=== PATIENT | male | born 1935 | race Caucasian/White ===

== ENCOUNTER 2017-05-21 16:40 | Inpatient (IN) | payer OTHER, MEDICARE ==
[~2017-05-21] VITALS: Ht 170.2 cm; Wt 108.9 kg
[~2017-05-21 16:40] MED LIST: ALBUTEROL2.5 MG/3 M INH; AMOX-CLAV 875-1 EACH PO; ANTIVERT 12.512.5 MG PO; BISACODYL5 M1 PO; CARDIZEM60 M1 PO; COZAAR100 M1 PO; DILTIAZEM 12HR60 MG PO; DIOVAN 160 MG160 MG PO; DONEPEZIL HCL10 M1 PO; ESCITALOPRAM OX20 MG PO; LANTUS SOL100 UNIT/1 SC; LEVEMIR FLEX100 U/M1 SC; LEVEMIR100 UNIT/1 SC; LOPRESSOR 25MG25 MG PO; METFORMIN HCL500 MG PO; NOVOLIN R100 UNIT/1 SC; PREDNISONE10 M2 PO; SENNA PLUS TAB1 EACH PO; SIMVASTATIN40 M1 PO; TOUJEO SOL300 UNIT/1 SC; VALSARTAN-HCTZ1 EAC2 PO; ZOCOR 40MG TAB40 MG PO
--- NOTE | 2017-05-21 16:49 | ED DYSPNEA/ASTHMA COMPLAINT ---
History of Present Illness General Chief Complaint: General Adult Stated Complaint: INCREASED WEAKNESS, UNABLE TO AMBULATE Source: patient Exam Limitations: confusion, poor historian Vital Signs & Intake/Output Vital Signs & Intake/Output Vital Signs Date Time Temp Pulse Resp B/P B/P Pulse O2 O2 Flow FiO2 Mean Ox Delivery Rate 05/21 2307 98.6 84 16 144/69 95 Nasal 1.0L Cannula 05/211 100.2 80 20 144/73 96 Nasal 1.0L Cannula 05/21 1902 100.0 81 22 142/74 93 Room Air 05/21 1706 96 Room Air 05/21 1704 93 05/21 1644 99.8 83 20 158/70 97 Room Air ED Intake and Output 05/22 0000 05/21 1200 Intake Total 420 Output Total 300 Balance 120 Intake, Oral 420 Output, Urine 300 Patient 256 lb Weight Weight Estimated Measurement Method Allergies Coded Allergies: NO KNOWN ALLERGIES (08/27/12) Triage Nurses Notes Reviewed? yes Onset: Abrupt Duration: day(s):, constant, continues in ED Timing: recent history Severity: mild, moderate HPI: 82-year-old male comes into the emergency room for further evaluation of increased weakness and shortness of breath. Symptoms of a going on for the past few days. Patient has been increasingly weak. He is unable to ambulate for the past few days. Denies any fever. Denies any chest pain. No vomiting. Nothing seems to make the symptoms better. (Elmer Whittaker) Reconcile Medications Atorvastatin Calcium 20 MG TABLET 1 TAB PO DAILY cholesterol (Reported) Diltiazem HCl (Diltiazem 12HR ER) 60 MG CAP.ER.12H 1 TAB PO BID HEART RATE ( Reported) Donepezil HCl 10 MG TABLET 1 TAB PO DAILY CONFUSION (Reported) Escitalopram Oxalate 20 MG TABLET 1 TAB PO DAILY DEPRESSION (Reported) Furosemide 20 MG TABLET 1 TAB PO DAILY Swelling (Reported) Insulin Detemir (Levemir) 100 UNIT/ML VIAL 30 UNITS SC DAILY DIABETES Insulin Regular (Novolin R Inj) 1,000 UNITS/10 ML MADHAVI 0 UNITS SC SEE ADMIN CRITERIA DIABETES (Reported) BEFORE MEALS BEFORE MEALS Blood Insulin Sugar Units <80 0 81-100 0 101-150 2 151-200 4 201-250 6 251-300 8 301-350 10 351-400 12 >400 Call Doctor Losartan (Cozaar) 100 MG TABLET 1 TAB PO DAILY high blood pressure Memantine HCl (Namenda) 10 MG TABLET 1 TAB PO DAILY dementia (Reported) Trazodone HCl 50 MG TABLET 0.5 TAB PO TIDPRN PRN Anxiety/Behavioral disturbance (Reported) (Delmy ROACH,Patrick Christy) Past History Travel History Traveled to [place] past 21 day No Medical History Any Pertinent Medical History? see below for history Neurological: dizziness, vertigo EENT: NONE Cardiovascular: hypertension, hyperlipidemia, syncope Respiratory: NONE Gastrointestinal: NONE Hepatic: NONE Renal: chronic kidney disease (stage3), bladder stones Musculoskeletal: osteoarthritis Psychiatric: NONE Endocrine: diabetes Blood Disorders: NONE Cancer(s): NONE ALLIANCES CONSULTANT/Reproductive: NONE History of MRSA: No History of VRE: No History of CDIFF: No Surgical History Surgical History: cystoscopy, hernia repair-inguinal, Lithotrpsy Psychosocial History Who do you live with Spouse Services at Home None What is your primary language Thai Family History Family History, If Any: FATHER (CAD, 2/2 AMI in 60's). Hx Contributory? No (Elmer Whittaker) Review of Systems Review of Systems Constitutional: Reports: see HPI. EENTM: Reports: no symptoms. Respiratory: Reports: see HPI. Cardiovascular: Reports: no symptoms. GI: Reports: no symptoms. Genitourinary: Reports: no symptoms. Musculoskeletal: Reports: see HPI. Skin: Reports: no symptoms. Neurological/Psychological: Reports: no symptoms. Hematologic/Endocrine: Reports: no symptoms. Immunologic/Allergic: Reports: no symptoms. All Other Systems: Reviewed and Negative (Elmer Whittaker) Physical Exam Physical Exam General Appearance: well developed/nourished, alert, awake Head: atraumatic Eyes: Bilateral: normal appearance. Ears, Nose, Throat: normal ENT inspection, hearing grossly normal Neck: normal inspection Respiratory: decreased breath sounds, wheezing, respiratory distress (mild) Cardiovascular: regular rate/rhythm Gastrointestinal: soft Extremities: pedal edema Neurologic/Psych: awake, alert Skin: intact, normal color Core Measures ACS in differential dx? Yes CVA/TIA Diagnosis No Sepsis Present: No Sepsis Focused Exam Completed? No (Elmer Whittaker) Progress Differential Diagnosis: asthma, AMI, bronchitis, costochondritis, CHF, COPD, musculoskeletal pain, pericarditis, pulmonary embolism, pneumonia, pneumothorax, rib fracture, unstable angina Plan of Care: Orders Procedure Date/time Status Nothing by Mouth 05/22 B Active Lab Add-on Test 05/22 0600 Active CBC WITHOUT DIFFERENTIAL 05/22 0600 Active BASIC ELECTROLYTES PLUS BUN&CR 05/22 0600 Active TROPONIN LEVEL 05/22 0500 Active EKG 05/22 0500 Active Consistent Carbohydrate 2 05/21 D Complete D-DIMER 05/21 2325 Complete HEPATITIS PANEL 05/21 2318 Active MONOSPOT TEST 05/21 2316 Complete [place], Insertion/Removal/Asses 05/21 2305 Active CULTURE,URINE 05/21 2305 Active MAGNESIUM 05/21 2301 Complete TROPONIN LEVEL 05/21 2300 Complete EKG 05/21 2300 Active Patient Data 05/21 2205 Active THROAT CULTURE W/QUICK STREP 05/21 215 Active TRC EVALUATION (GEN) 05/21 2149 Active OXYGEN SETUP (GEN) 05/21 214 Active Pathway - chart 05/21 214 Active House Staff 05/21 2149 Active Patient Data 05/21 2149 Active Patient Data 05/21 2115 Active Saline Lock 05/[address] in observation 05/21 2013 Active Misc Message 05/21 2013 Active ED Holding Orders 05/21 2013 Active Vital Signs 05/21 2013 Active Code Status 05/21 2013 Active ACETOMINOPHEN 05/21 1658 Active TOTAL IRON BINDING CAPACITY 05/21 1658 Active GLYCOSYLATED HGB 05/21 1658 Active FERRITIN 05/21 1658 Active SERUM IRON 05/21 1658 Active Add-on Test (ER Only) 05/21 1648 Active Telemetry/Hose Maker 05/21 1648 Active RAPID VIRAL INFLUENZA A 05/21 1648 Complete BLOOD CULTURE 05/21 1648 Active URINALYSIS 05/21 1648 Complete TROPONIN LEVEL 05/21 1648 Active LACTIC ACID 05/21 1648 Active COMPREHENSIVE METABOLIC PANEL 05/21 1648 Active CBC WITHOUT DIFFERENTIAL 05/21 1648 Complete B-TYPE NATRIURETIC PEP (BNP) 05/21 1648 Active EKG 05/21 1648 Active US-COMPLETE ABDOMEN 05/21 UNK Active Lab Add-on Test 05/21 UNK Active VTE Mechanical Prophylaxis 05/21 UNK Active Vital Signs 05/21 UNK Active MISTAKE 05/21 UNK Active Intake & Output 05/21 UNK Active Hemoccult 05/21 UNK Active [place] Coma Scale 05/21 UNK Active FingerStick- Glucose 05/21 UNK Active ECHOCARDIOGRAM 05/21 UNK Active Current Medications Sig/[place] Start time Last Medication Dose Stop Time Status Admin Azithromycin 500 MG DAILY 05/22 1000 AC (Zithromax) 05/26 1059 Sodium Chloride 250 ML (Normal Saline 0.9%) Diltiazem HCl 60 MG BID 05/22 1000 AC (Cardizem SR) Insulin Detemir 10 UNITS BID 05/22 1000 AC (Levemir) Losartan Potassium 100 MG DAILY 05/22 1000 AC (Cozaar) Memantine 10 MG DAILY 05/22 1000 AC (Namenda) Insulin Aspart 0 TIDAC 05/22 0800 CAN (NovoLOG) Insulin Human Regular 0 Q6 05/22 0600 AC (NovoLIN R) Methylprednisolone 40 MG Q8 05/22 0600 AC (Solumedrol) Heparin Sodium 5,000 UNIT Q8 05/22 0015 AC 05/22 (Porcine) 0015 Trazodone HCl 25 MG TIDPRN PRN 05/21 2330 AC (Desyrel) Furosemide 40 MG DAILY 05/21 2315 AC 05/22 (Lasix) 0015 Laboratory Tests 05/22/17 0042: Infectious [place] Titer NEGATIVE 05/22/17 0042: D-Dimer High Sensitivty 288 H, Hepatitis A IgM Ab Pending, Hep Bs Antigen Pending, Hep B Core IgM Ab Conf Pending, Hepatitis C Antibody Pending 05/21/17 2310: Urine Color YEL, Urine Clarity CLEAR, Urine pH 6.0, Ur Specific [place] 1.010, Urine Protein NEG, Urine Ketones NEG, Urine Nitrite NEG, Urine Bilirubin NEG, Urine Urobilinogen 0.2, Ur Leukocyte Esterase NEG, Ur Microscopic EXAM NOT REQUIRED, Urine Hemoglobin NEG, Urine Glucose >=1000 H 05/21/17 2301: Magnesium 1.9, Troponin I 0.06 05/21/17 194: Lactic Acid Cancelled 05/21/17 1658: Anion Gap 15, Estimated GFR 49 L, BUN/Creatinine Ratio 17.9, Glucose 158 H, Hemoglobin A1c Pending, Lactic Acid 1.6, Calcium 8.9, Iron 24 L, TIBC 291, Ferritin 188.0, Total Bilirubin 0.7, AST 205 H, ALT 188 H, Alkaline Phosphatase 214 H, Troponin I 0.04, Rdj-B-Djvtipdbllq Pept 918 H, Total Protein 6.6, Albumin 3.6, Globulin 3.0, Albumin/Globulin Ratio 1.2, CBC w Diff NO MAN DIFF REQ, RBC 4.45 L, MCV 85.8, MCH 28.7, RDW 14.8 H, MPV 7.4, Gran % 79.9 H, Lymphocytes % 7.3 L, Monocytes % 11.2 H, Eosinophils % 1.6, Basophils % 0, Absolute Granulocytes 7.0 H, Absolute Lymphocytes 0.6 L, Absolute Monocytes 1.0 H, Absolute Eosinophils 0.1, Absolute Basophils 0, PUBS MCHC 33.4 , Acetaminophen < 10.0 L Microbiology 05/21 2310 URINE ROUT: Urine Culture - RECD 05/21 2151 NASOPHARYN: Influenza Virus A & B Rapid Smear - CAN Cancelled: Cancelled via OE: DUPLICATE 05/21 2010 NASOPHARYN: Influenza Virus A & B Rapid Smear - COMP 05/21 175 BLOOD: Blood Culture - RECD 05/21 1735 BLOOD: Blood Culture - RECD Diagnostic Imaging: Viewed by Me: Radiology Read, CT Scan. Discussed w/RAD: Radiology Read, CT Scan. Radiology Impression: PATIENT: AKHIL BENTLEY PRESENT AGE: 82 PATIENT ACCOUNT NO: [id number] : 35 LOCATION: [facility] ORDERING PHYSICIAN: Elmer FRAZIER SERVICE DATE: 05/21/17 EXAM TYPE: CAT - CT ABD & PELVIS W/O IV CONTRAS EXAMINATION: CT ABDOMEN AND PELVIS WITHOUT CONTRAST CLINICAL INFORMATION: Elevated LFTs. Abdominal pain. COMPARISON: Renal ultrasound 04/29/2016, CT abdomen and pelvis 05/26/2008 TECHNIQUE: Multidetector volumetric imaging was performed from the superior aspect of the liver through the pubic symphysis. Sagittal and coronal reformatted images were obtained on the technologist's workstation. FINDINGS: LUNG BASES: The lung bases are clear. There are trace layering pleural effusions present. LIVER, GALLBLADDER, AND BILIARY TREE: The liver is normal in size, shape, and attenuation. No focal hepatic lesion or biliary ductal dilatation is present. The gallbladder is unremarkable with no evidence of radiopaque gallstones, gallbladder wall thickening, or obvious pericholecystic inflammatory changes. PANCREAS: The pancreas is mildly atrophic, there is no evidence of acute pancreatic inflammation or pancreatic mass. SPLEEN: The spleen is prominent in size. ADRENAL GLANDS: Unremarkable. KIDNEYS AND URETERS: The kidneys are normal in size, shape, and attenuation. No hydronephrosis, hydroureter, or calculi seen. No perinephric stranding. BLADDER: The bladder is incompletely distended and not well assessed. GASTROINTESTINAL TRACT: There are diffuse sigmoid diverticula present. There is no evidence of acute diverticulitis. No bowel obstruction or focal bowel wall thickening is seen. ABDOMINAL WALL: No significant hernia is appreciated. LYMPH NODES: Normal. VASCULAR: There are diffuse vascular calcifications present. There is no evidence of abdominal aortic aneurysm. PELVIC VISCERA: The prostate gland is enlarged measuring 6.9 x 5.6 cm in the transverse plane. OSSEOUS STRUCTURES: There are marked degenerative changes within the lower thoracic and lumbar spine. No acute osseous abnormality is seen. IMPRESSION: Mild prominence of the spleen. Sigmoid diverticulosis. Enlarged prostate gland. DICTATED BY: Leilani Powell MD DATE/TIME DICTATED:1827 INSIDE SALES RECRUITER:ELDA DATE/TIME TRANSCRIBED:05/21/171827 CONFIDENTIAL, DO NOT COPY WITHOUT APPROPRIATE AUTHORIZATION. <Electronically signed in Other Vendor System> SIGNED BY: Leilani Powell MD 05/21/171835, PATIENT: AKHIL BENTLEY PRESENT AGE: 82 PATIENT ACCOUNT NO: [id number] : 35 LOCATION: [facility] ORDERING PHYSICIAN: Elmer FRAZIER SERVICE DATE: 05/21/17 EXAM TYPE: RAD - XRY-PORTABLE CHEST XRAY EXAMINATION: XR PORTABLE CHEST CLINICAL INFORMATION: Shortness of breath COMPARISON: 05/29/2016 TECHNIQUE: Portable frontal view of the chest was obtained. FINDINGS: Frontal view of the chest reveals a dual lead pacer to be present, tips overlie the right atrium and right ventricle. The lungs are hypoexpanded and the exam is limited by overlying soft tissue. There is no area of focal dense consolidation seen. No pleural effusion or pneumothorax is seen. The cardiac silhouette is enlarged, stable. IMPRESSION: Limited examination. No evidence of dense focal consolidation or overt pulmonary edema. DICTATED BY: Leilani Powell MD DATE/TIME DICTATED:05/21/171804 INSIDE SALES RECRUITER:ELDA DATE/TIME TRANSCRIBED:05/21/171804 CONFIDENTIAL, DO NOT COPY WITHOUT APPROPRIATE AUTHORIZATION. <Electronically signed in Other Vendor System> SIGNED BY: Leilani Powell MD 05/21/171809 Initial ED EKG: rate (175), pacemaker rhythm (Elmer Whittaker) Departure Departure Disposition: STILL A PATIENT Condition: Stable Clinical Impression Primary Impression: Bronchitis Secondary Impressions: Multifactorial gait disorder, Transaminitis Referrals: Davonte Barahona MD (PCP/Family) Departure Forms: Customer Survey General Discharge Information Admission Note Spoke With: Mariann Louie MD Documentation of Exam: Documentation of any treatments & extenuating circumstances including Concerns Regarding Discharge (functional status, medication knowledge or non-compliance, living conditions, etc.) that warrant an admission rather than observation: Patient will require supplemental oxygen. Breathing treatments. Steroids. Pulmonary consult. Physical therapy consult. Case management consult. Patient is not able to ambulate here in the emergency room. Medically not safe for discharge. IV diuresis for lower extremity edema. (Elmer Whittaker) PA/FITNESS AND WELLNESS MANAGER Co-Sign Statement Statement: ED Attending supervision documentation- [X] I saw and evaluated the patient. I have also reviewed all the pertinent lab results and diagnostic results. I agree with the findings and the plan of care as documented in the PA's/FITNESS AND WELLNESS MANAGER's documentation. 05/21/17, 7:10PM... pt breathless, wheezing, unable to ambulate, on exam, bilateral wheeze.... pt merits admission for copd exacerbation, iv steroids/nebs /abx. [] I have reviewed the ED Record and agree with the PA's/FITNESS AND WELLNESS MANAGER's documentation. [] Additions or exceptions (if any) to the PAs/FITNESS AND WELLNESS MANAGER's note and plan are summarized below: [] (Delmy ROACH,Patrick Christy) Critical Care Note Critical Care Note Critical Care Time: non-applicable (Elmer Whittaker)
[2017-05-21 17:20] LABS: ABSOLUTE BASOPHIL COUNT 0 /CUMM (0.0-0.2); ABSOLUTE EOSINOPHIL COUNT 0.1 /CUMM (0.0-0.7); ABSOLUTE LYMPH COUNT 0.6 /CUMM (1.2-3.4); BASOPHIL % 0 % (0.0-2.0); EOSINOPHIL % 1.6 % (0-5); GRANULOCYTE % 79.9 % (42.2-75.2); HEMATOCRIT 38.2 % (42-52); MEAN CORPUSCULAR HGB 28.7 PG (27.0-31.0); MEAN CORPUSCULAR HGB CONC 33.4 G/DL (33.0-37.0); MEAN CORPUSCULAR VOLUME 85.8 FL (80.0-94.0); MEAN PLATELET VOLUME 7.4 FL (7.4-10.4); PLATELET COUNT 195 /CUMM (130-400); RBC DISTRIBUTION WIDTH 14.8 % (11.5-14.5); RED BLOOD CELL CT 4.45 /CUMM (4.70-6.10); WHITE BLOOD CELL COUNT 8.8 /CUMM (4.8-10.8)
--- NOTE | 2017-05-21 18:10 | RADIOLOGY REPORT ---
EXAMINATION: XR PORTABLE CHEST CLINICAL INFORMATION: Shortness of breath COMPARISON: 05/29/2016 TECHNIQUE: Portable frontal view of the chest was obtained. FINDINGS: Frontal view of the chest reveals a dual lead pacer to be present, tips overlie the right atrium and right ventricle. The lungs are hypoexpanded and the exam is limited by overlying soft tissue. There is no area of focal dense consolidation seen. No pleural effusion or pneumothorax is seen. The cardiac silhouette is enlarged, stable. IMPRESSION: Limited examination. No evidence of dense focal consolidation or overt pulmonary edema.
--- NOTE | 2017-05-21 18:36 | CT SCAN REPORT ---
EXAMINATION: CT ABDOMEN AND PELVIS WITHOUT CONTRAST CLINICAL INFORMATION: Elevated LFTs. Abdominal pain. COMPARISON: Renal ultrasound 04/29/2016, CT abdomen and pelvis 05/26/2008 TECHNIQUE: Multidetector volumetric imaging was performed from the superior aspect of the liver through the pubic symphysis. Sagittal and coronal reformatted images were obtained on the technologist's workstation. FINDINGS: LUNG BASES: The lung bases are clear. There are trace layering pleural effusions present. LIVER, GALLBLADDER, AND BILIARY TREE: The liver is normal in size, shape, and attenuation. No focal hepatic lesion or biliary ductal dilatation is present. The gallbladder is unremarkable with no evidence of radiopaque gallstones, gallbladder wall thickening, or obvious pericholecystic inflammatory changes. PANCREAS: The pancreas is mildly atrophic, there is no evidence of acute pancreatic inflammation or pancreatic mass. SPLEEN: The spleen is prominent in size. ADRENAL GLANDS: Unremarkable. KIDNEYS AND URETERS: The kidneys are normal in size, shape, and attenuation. No hydronephrosis, hydroureter, or calculi seen. No perinephric stranding. BLADDER: The bladder is incompletely distended and not well assessed. GASTROINTESTINAL TRACT: There are diffuse sigmoid diverticula present. There is no evidence of acute diverticulitis. No bowel obstruction or focal bowel wall thickening is seen. ABDOMINAL WALL: No significant hernia is appreciated. LYMPH NODES: Normal. VASCULAR: There are diffuse vascular calcifications present. There is no evidence of abdominal aortic aneurysm. PELVIC VISCERA: The prostate gland is enlarged measuring 6.9 x 5.6 cm in the transverse plane. OSSEOUS STRUCTURES: There are marked degenerative changes within the lower thoracic and lumbar spine. No acute osseous abnormality is seen. IMPRESSION: Mild prominence of the spleen. Sigmoid diverticulosis. Enlarged prostate gland.
--- NOTE | 2017-05-21 21:16 | History & Physical ---
Jessica ROACH,Amos 05/21/172115: General Information and HPI History of Present Illness: Mr. Toribio is an 82-year-old male with past medical history of BPV, hypertension , hyperlipidemia, syncope, stage III chronic kidney disease, nephrolithiasis, osteoarthritis, diabetes mellitus, tachybradycardia syndrome status post pacemaker, anxiety, depression, and dementia who was brought in by ambulance from home with shortness of breath. The patient is alert and oriented 2 but also confused and forgetful. He does not recall events leading to his hospitalization. Presently, he is complaining of confusion, congestion, and shortness of breath. The shortness of breath is worse when lying down and exertional. He uses 2 pillows to sleep at night. He noticed that he has gained weight recently and has swollen legs. He also salt restricts. He is additionally complaining of some productive cough, runny nose, sore throat, feverish, chills, night sweats, nausea, and dysuria. He denies any chest pain, palpitations, abdominal pain, vomiting, or diarrhea. I did have a chance to speak to his , Kaya. She notes that over the past week or so he has been getting progressively weaker with cough, congestion, and increased swelling. They did go to the PCP who prescribed Bactrim for bronchitis last Monday. The PCP also told him to double the dose of his furosemide from 20 mg to 40 mg once a day. She also notes that his dementia has been getting worse and he is increasingly forgetful. Allergies/Medications Allergies: Coded Allergies: NO KNOWN ALLERGIES (08/27/12) Past History Travel History Traveled to [place] past 21 day No Medical History Neurological: dizziness, vertigo EENT: NONE Cardiovascular: hypertension, hyperlipidemia, syncope Respiratory: NONE Gastrointestinal: NONE Hepatic: NONE Renal: chronic kidney disease (stage3), bladder stones Musculoskeletal: osteoarthritis Psychiatric: NONE Endocrine: diabetes Blood Disorders: NONE Cancer(s): NONE CERTIFIED OPHTHALMIC ASSISTANT/Reproductive: NONE History of MRSA: No History of VRE: No History of CDIFF: No Surgical History Surgical History: cystoscopy, hernia repair-inguinal, Lithotrpsy Past Family/Social History Family History Relations & Conditions if any FATHER (CAD, 2/2 AMI in 60's). Psychosocial History Who Do You Live With? spouse Services at Home: None Primary Language: British Living Will? no Functional Ability ADLs Independent: dressing, eating, toileting, bathing. Ambulation: independent IADLs Independent: shopping, housework, finances, food prep, telephone, transportation , medication admin. Review of Systems Review of Systems Constitutional: Reports: see HPI. EENTM: Reports: no symptoms. Cardiovascular: Reports: see HPI. Respiratory: Reports: see HPI. GI: Reports: see HPI. Genitourinary: Reports: see HPI. Musculoskeletal: Reports: no symptoms. Skin: Reports: no symptoms. Neurological/Psychological: Reports: no symptoms. Hematologic/Endocrine: Reports: no symptoms. Immunologic/Allergic: Reports: no symptoms. All Other Systems: Reviewed and Negative Exam & Diagnostic Data Last 24 Hrs of Vital Signs/I&O Vital Signs Date Time Temp Pulse Resp B/P B/P Pulse O2 O2 Flow FiO2 Mean Ox Delivery Rate 05/211 100.2 80 20 144/73 96 Nasal 1.0L Cannula 05/21 1902 100.0 81 22 142/74 93 Room Air 05/21 1706 96 Room Air 05/21 1704 93 05/21 1644 99.8 83 20 158/70 97 Room Air Physical Exam General Appearance Alert, Cooperative, No Acute Distress, orientedx2 Skin Lesion on right suborbital face HEENT Atraumatic, PERRLA, EOMI, posterior pharynx erythematous Lymphatic Cervical nl Cardiovascular Normal S1, Normal S2, S3, JVD present Lungs crackles at bases Abdomen Soft, No Tenderness, obese Neurological Normal Speech, Cranial Nerves 3-12 NL Extremities 3+ pitting edema bilaterally without venous stasis dermatitis Last 24 Hrs of Labs/Regan: Laboratory Tests 05/21/17 194: Lactic Acid Cancelled 05/21/17 1658: Anion Gap 15, Estimated GFR 49 L, BUN/Creatinine Ratio 17.9, Glucose 158 H, Lactic Acid 1.6, Calcium 8.9, Total Bilirubin 0.7, AST 205 H, ALT 188 H, Alkaline Phosphatase 214 H, Troponin I 0.04, Tmb-A-Ccokqbawnyi Pept 918 H, Total Protein 6.6, Albumin 3.6, Globulin 3.0, Albumin/Globulin Ratio 1.2, CBC w Diff NO MAN DIFF REQ, RBC 4.45 L, MCV 85.8, MCH 28.7, RDW 14.8 H, MPV 7.4, Gran % 79.9 H, Lymphocytes % 7.3 L, Monocytes % 11.2 H, Eosinophils % 1.6, Basophils % 0, Absolute Granulocytes 7.0 H, Absolute Lymphocytes 0.6 L, Absolute Monocytes 1.0 H, Absolute Eosinophils 0.1, Absolute Basophils 0, PUBS MCHC 33.4 Microbiology 05/21 215 NASOPHARYN: Influenza Virus A & B Rapid Smear - ORD 05/21 2010 NASOPHARYN: Influenza Virus A & B Rapid Smear - COMP 05/21 175 BLOOD: Blood Culture - RECD 05/21 1735 BLOOD: Blood Culture - RECD Assessment/Plan Assessment: Mr. Toribio is an 82-year-old male with past medical history of BPV, hypertension , hyperlipidemia, syncope, stage III chronic kidney disease, nephrolithiasis, osteoarthritis, diabetes mellitus, tachybradycardia syndrome status post pacemaker, anxiety, depression, and dementia who was brought in by ambulance from home with shortness of breath. On presentation, vital signs were T 99.8, HR 83, RR 20, BP 158/70, saturating 97 % on room air. Laboratories were significant for white blood cell count 8.8, 79.9% granulocytes, 11.2% monocytes, hemoglobin 12.8, MCV 85.8, chloride 96, BUN 25, creatinine 1.4 (baseline 1.5), lactic acid 1.6, calcium 8.9, total bilirubin 0.7, AST 205, ALT 188, alkaline phosphatase 214, troponin 0.04, BNP 918. Chest x -ray showed no consolidation or pulmonary edema. CT abdomen/pelvis shows splenomegaly, diverticulosis, BPH. He was treated with methylprednisone, ipratropium, albuterol in the emergency room. He'll be placed in observation on telemetry and treated for the following problems: 1. Dyspnea 2. Transaminitis 3. Normocytic anemia #Dyspnea: The patient was admitted past year and had a cardiology workup that did not reveal any heart failure. However, he is presenting with symptoms of heart failure as well as an examination that shows crackles, JVD, and leg swelling. His BNP is also elevated. Because of this, it seems like he may have developed heart failure and this may be an exacerbation. He also has URI symptoms and smoking history, so a URI/COPD exacerbation is possible. -Telemetry monitoring -Cardiology consult -TTE -Furosemide IV 40 mg daily -Methylprednisone -Azithromycin #Transaminitis: This is new compared to his last admission. Although many of his symptoms can probably be explained by a CHF exacerbation, he also has splenomegaly, increased monocytes, and some URI symptoms. Potentially, he may have EBV infection. He has a low grade fever, and he is reporting chills and night sweats. Other items on differential include medications (statin, Bactrim) or hepatitis. -Monospot test -Hepatitis serology -Abd US in AM -Hold statin -TSH -CTM #Normocytic anemia: Asymptomatic. -Iron studies #Chronic medical problem: Hyperlipidemia, hypertension, dementia, depression -Continue home diltiazem, donepezil, citalopram, losartan, memantine, trazodone -Detemir plus insulin sliding scale -PT consult DVT prophylaxis with heparin Consistent carbohydrate 2 diet Full code As Ranked By This Provider Problem List: 1. Dyspnea Core Measures/Misc (02/19) Acute Coronary Syndrome ACS Diagnosis: No Congestive Heart Failure Congestive Heart Failure Diagnosis No Cerebrovascular Accident CVA/TIA Diagnosis: No VTE (View Protocol) VTE Risk Factors Age>40 No Mechanical VTE Prophylaxis d/t N/A MechProphylax Ordered No VTE Pharm Prophylaxis d/t NA PharmProphylax ordered Sepsis (View protocol) Sepsis Present: No Diana Day 05/21/173: General Information and HPI Allergies/Medications Home Med list Atorvastatin Calcium 20 MG TABLET 1 TAB PO DAILY cholesterol (Reported) Diltiazem HCl (Diltiazem 12HR ER) 60 MG CAP.ER.12H 1 TAB PO BID HEART RATE ( Reported) Donepezil HCl 10 MG TABLET 1 TAB PO DAILY CONFUSION (Reported) Escitalopram Oxalate 20 MG TABLET 1 TAB PO DAILY DEPRESSION (Reported) Furosemide 20 MG TABLET 1 TAB PO DAILY Swelling (Reported) Insulin Detemir (Levemir) 100 UNIT/ML VIAL 30 UNITS SC DAILY DIABETES Insulin Regular (Novolin R Inj) 1,000 UNITS/10 ML MADHAVI 0 UNITS SC SEE ADMIN CRITERIA DIABETES (Reported) BEFORE MEALS BEFORE MEALS Blood Insulin Sugar Units <80 0 81-100 0 101-150 2 151-200 4 201-250 6 251-300 8 301-350 10 351-400 12 >400 Call Doctor Losartan (Cozaar) 100 MG TABLET 1 TAB PO DAILY high blood pressure Memantine HCl (Namenda) 10 MG TABLET 1 TAB PO DAILY dementia (Reported) Trazodone HCl 50 MG TABLET 0.5 TAB PO TIDPRN PRN Anxiety/Behavioral disturbance (Reported) Resident Review Statement Resident Statement: examined this patient, discussed with product management internship, agreed with product management internship, reviewed EMR data (avail), reviewed images Other Findings: This is an 82-year-old gentleman with past medical history significant for retention, dyslipidemia, tachycardia bradycardia syndrome status post dual- chamber pacemaker, diabetes, CK D, Reported history of HFpEF, history of prior syncope who was BIBA for worsening of dyspnea. The patient reports exertional dyspnea which is worsened when lying down. He uses 2 pillows for sleep at baseline. He is also noticed increased leg swelling and weight gain recently. He also complains of congestion, she was fitted subjective fever and night sweats with productive cough and occasional dysuria. He denies chest pain, headache, nausea, vomiting, palpitation, abdominal pain, diarrhea. Please see above for more details. Physical exam: Maximum temperature of 100.2, pulse rate 80, respiratory rate 20, blood pressure 144/73, oxygen saturation 96% on 1 L nasal cannula oxygen. NAD, AAO 2 (person and place) HEENT: H NCAT, PERRLA, EOMI, erythematous pharynx neck : JVD noted, no carotid bruit CV: S1, S2 auscultated, S3 present, no murmur lungs: Mild crackles abdomen: Soft, NT, ND extremities: Bilateral lower extremity edema, without any venous stasis skin changes neurology: Normal speech, cranial nerves III-12 intact, normal strength, normal reflexes skin: Scar/lesion noted above right nasolabial fold(s/p cancerous lesion excision) Available labs and diagnostic data reviewed. Problem list #Worsening of dyspnea #Transaminitis #Worsening of Lower extremity edema, weight gain #Dysuria Plan day while in the hospital open (is on 30 units daily at home) repeat EKG had QTC of 423) Liban ROACH, [facility] 05/22/17 0720: Attending MD Review Statement Attending Statement Attending MD Statement: examined this patient, discuss w/resident/PA/AEROSPACE QUALITY ENGINEER, agreed w/resident/PA/AEROSPACE QUALITY ENGINEER, reviewed images, amended to note Attending Assessment/Plan: 82 yo obese M with h/o HTN, T2DM, HLD, CKD stage 3, SVT s/p PPM, dementia, tachybrady syndrome underwent PPM, no prior h/o CHF, is brought in by family for increasing weakness and exertional dyspnea. He has had increasing lower extremity edema limiting his ambulation. He reports orthopnea and productive cough with congestion. He is an active smoker, never diagnosed with COPD/ asthma. Patient is a limited history as he is forgetful. reports that patient was prescribed Bactrim for bronchitis 1 week ago and his PCP increased his lasix dose from 20 to 40 mg for worsening LE edema. Vitals: Tmax 100.2, otherwise stable. Exam: mild JVD, Chest basilar crackles+, Heart S1S2 regular, Abd soft, NT, LE: 3+ pitting edema. Labs: no leukocytosis, D -dimer 288, BUN 25, creat 1.4, glucose 158, AST 205, ALT 188, Alk phos 214, trop neg, proBNP 918, UA neg. CXR: neg. CT abd/pelvis: mild prominence of spleen, enlarged prostate gland. EKG: paced rhythm. Echo (2016): EF 60-65%, mild aortic sclerosis. Assessment and plan: 1. Exertional dyspnea, orthopnea 2. Possible congestive heart failure, no prior history of CHF. He takes lasix for LE edema. 3. Bronchitis 4. Transaminitis possibly Bactrim induced 5. CKD stage 3 - 23 hour observation on Telemetry - Monitor for arrhythmias - Strict I/O's, daily weights - IV lasix 40 daily - Obtain echo and cardio consult - Serial EKG and troponin - TRC nebs, sputum culture - IV steroids with azithromycin for bronchitis - Obtain RUQ ultrasound, hep panel. - Hold statin, trend LFTs - Diabetes management - PT eval DVT ppx Hep SC. Full code. Observation Initial Note - I have personally examined AKHIL TORIBIO on 05/22/17 at 0721. The disposition of AKHIL TORIBIO is uncertain at this time and before a determination can be made, he requires a period of observation for the following reasons [dyspnea, weakness]
[2017-05-21] MEDS ORDERED: ATORVASTATIN CA20 M1 PO (22:21)
[2017-05-21] MEDS ORDERED: NAMENDA10 M2 PO (22:22)
[2017-05-21] MEDS ORDERED: TRAZODONE HCL50 M1 PO (22:23)
[2017-05-21] MEDS ORDERED: FUROSEMIDE20 M1 PO (22:24)
[2017-05-21 23:00] VITALS: BP 147/67
[2017-05-22 06:37] LABS: ABSOLUTE BASOPHIL COUNT 0 /CUMM (0.0-0.2); ABSOLUTE EOSINOPHIL COUNT 0 /CUMM (0.0-0.7); ABSOLUTE GRANULOCYTE CT 6.7 /CUMM (1.4-6.5); ABSOLUTE LYMPH COUNT 0.6 /CUMM (1.2-3.4); ABSOLUTE MONOCYTE COUNT 0.2 /CUMM (0.10-0.60); BASOPHIL % 0 % (0.0-2.0); EOSINOPHIL % 0 % (0-5); GRANULOCYTE % 89.3 % (42.2-75.2); HEMATOCRIT 35.8 % (42-52); MEAN CORPUSCULAR HGB 28.5 PG (27.0-31.0); MEAN CORPUSCULAR HGB CONC 33.2 G/DL (33.0-37.0); MEAN PLATELET VOLUME 7.6 FL (7.4-10.4); PLATELET COUNT 131 /CUMM (130-400); RBC DISTRIBUTION WIDTH 14.6 % (11.5-14.5); RED BLOOD CELL CT 4.16 /CUMM (4.70-6.10); WHITE BLOOD CELL COUNT 7.5 /CUMM (4.8-10.8)
[2017-05-22 07:44] VITALS: BP 157/75
--- NOTE | 2017-05-22 08:04 | PN- Housestaff ---
Carolina Marino 05/22/17 0804: Subjective Follow-up For: - SOB Subjective: Pt comfortable. No new complaints. Remained afebrile overnight. Review of Systems Constitutional: Reports: see HPI. Objective Last 24 Hrs of Vital Signs/I&O Vital Signs Date Time Temp Pulse Resp B/P B/P Pulse O2 O2 Flow FiO2 Mean Ox Delivery Rate 05/22 0744 95.5 90 20 157/75 96 Nasal 2.0L Cannula 05/22 0615 95.5 90 20 157/75 Nasal 2.0L Cannula 05/21 2307 98.6 84 16 144/69 95 Nasal 1.0L Cannula 05/21 2300 96.5 80 18 147/67 96 Nasal 2.0L Cannula 05/21 2121 100.2 80 20 144/73 96 Nasal 1.0L Cannula 05/21 1902 100.0 81 22 142/74 93 Room Air 05/21 1706 96 Room Air 05/21 1704 93 05/21 1644 99.8 83 20 158/70 97 Room Air Intake & Output 05/22 1600 05/22 0800 05/22 0000 Intake Total 420 Output Total 700 300 Balance -700 120 Intake, Oral 420 Output, Urine 700 300 Patient 256 lb Weight Weight Estimated Measurement Method Physical Exam General Appearance: No Acute Distress Current Medications: Current Medications Sig/Lolis Start time Last Medication Dose Route Stop Time Status Admin Albuterol Sulfate 3 ML ONCE ONE 05/21 1700 DC 05/21 INH 05/21 1701 1704 Azithromycin 500 MG DAILY 05/22 1000 AC Sodium Chloride 250 ML IV 05/26 1059 Diltiazem HCl 60 MG BID 05/22 1000 AC PO Furosemide 0 .STK-MED ONE 05/22 0003 DC IV Furosemide 40 MG DAILY 05/21 2315 AC 05/22 IV 0015 Heparin Sodium 0 .STK-MED ONE 05/22 0614 DC (Porcine) .ROUTE Heparin Sodium 0 .STK-MED ONE 05/22 0028 DC (Porcine) .ROUTE Heparin Sodium 5,000 UNIT Q8 05/22 0015 AC 05/22 (Porcine) SC 0650 Insulin Aspart 0 TIDAC 05/22 0800 CAN SC Insulin Detemir 10 UNITS BID 05/22 1000 AC SC Insulin Human Regular 0 Q6 05/22 0600 AC 05/22 SC 0650 Ipratropium [place] 2.5 ML ONCE ONE 05/21 1700 DC 05/21 INH 05/21 170 1703 Losartan Potassium 100 MG DAILY 05/22 1000 AC PO Memantine 10 MG DAILY 05/22 1000 AC PO Memantine 20 MG BID 05/21 2328 DC PO Methylprednisolone 40 MG Q8 05/22 0600 AC 05/22 IV 0650 Methylprednisolone 0 .STK-MED ONE 05/21 1720 DC .ROUTE Methylprednisolone 125 MG ONCE ONE 05/21 1700 DC 05/21 IV 05/21 170 1721 Trazodone HCl 25 MG TIDPRN PRN 05/21 2330 AC PO Last 24 Hrs of Lab/Regan Results Last 24 Hrs of Labs/Mics: Laboratory Tests 05/22/17 0600: Troponin I 0.04 05/22/17 0600: Anion Gap 11, Estimated GFR 53 L, BUN/Creatinine Ratio 19.2, CBC w Diff MAN DIFF ORDERED, RBC 4.16 L, MCV 86.0, MCH 28.5, RDW 14.6 H, MPV 7.6, Gran % 89.3 H, Lymphocytes % 8.7 L, Monocytes % 2.0, Eosinophils % 0, Basophils % 0, Absolute Granulocytes 6.7 H, Segmented Neutrophils 80 H, Band Neutrophils 3, Absolute Lymphocytes 0.6 L, Lymphocytes 16 L, Monocytes 1 L, Absolute Monocytes 0.2, Absolute Eosinophils 0, Absolute Basophils 0, Platelet Estimate DECREASED, Normocytic RBCs VERIFIED, Normochromic RBCs VERIFIED, PUBS MCHC 33.2 05/22/17 0042: Infectious Douglas Titer NEGATIVE 05/22/17 0042: D-Dimer High Sensitivty 288 H, Hepatitis A IgM Ab Pending, Hep Bs Antigen Pending, Hep B Core IgM Ab Conf Pending, Hepatitis C Antibody Pending 05/21/17 2310: Urine Color YEL, Urine Clarity CLEAR, Urine pH 6.0, Ur Specific Alexander 1.010, Urine Protein NEG, Urine Ketones NEG, Urine Nitrite NEG, Urine Bilirubin NEG, Urine Urobilinogen 0.2, Ur Leukocyte Esterase NEG, Ur Microscopic EXAM NOT REQUIRED, Urine Hemoglobin NEG, Urine Glucose >=1000 H 05/21/17 2301: Magnesium 1.9, Troponin I 0.06 05/21/171947: Lactic Acid Cancelled 05/21/17 1658: Anion Gap 15, Estimated GFR 49 L, BUN/Creatinine Ratio 17.9, Glucose 158 H, Hemoglobin A1c Pending, Lactic Acid 1.6, Calcium 8.9, Iron 24 L, TIBC 291, Ferritin 188.0, Total Bilirubin 0.7, AST 205 H, ALT 188 H, Alkaline Phosphatase 214 H, Troponin I 0.04, Bhn-O-Zgvtchipxxl Pept 918 H, Total Protein 6.6, Albumin 3.6, Globulin 3.0, Albumin/Globulin Ratio 1.2, CBC w Diff NO MAN DIFF REQ, RBC 4.45 L, MCV 85.8, MCH 28.7, RDW 14.8 H, MPV 7.4, Gran % 79.9 H, Lymphocytes % 7.3 L, Monocytes % 11.2 H, Eosinophils % 1.6, Basophils % 0, Absolute Granulocytes 7.0 H, Absolute Lymphocytes 0.6 L, Absolute Monocytes 1.0 H, Absolute Eosinophils 0.1, Absolute Basophils 0, PUBS MCHC 33.4 , Acetaminophen < 10.0 L Microbiology 05/21 2310 URINE ROUT: Urine Culture - RECD 05/21 2151 NASOPHARYN: Influenza Virus A & B Rapid Smear - CAN Cancelled: Cancelled via OE: DUPLICATE 05/21 2010 NASOPHARYN: Influenza Virus A & B Rapid Smear - COMP 05/21 175 BLOOD: Blood Culture - RECD 05/21 1735 BLOOD: Blood Culture - RECD Assessment/Plan Assessment: Mr. Toribio is an 82 yr old gentleman w/ dementia, PMHx of BPV, HTN, HLD, syncope, CKD stage 3a, insulin treated DM, tachy-alejandra syndrome s/p PPM, depression who is being evaluated for worsening dyspnea in the last few weeks likely secondary to diastolic cardiac dysfunction and bronchitis. At the time of admission, Tm 100.2, WI 80, RR 20, BP 144/73, O2 sat 96% 1L NC. General Appearance Alert, Cooperative, No Acute Distress, orientedx2 Skin Lesion on right side maxillary area. HEENT Atraumatic, PERRLA, EOMI, posterior pharynx erythematous Lymphatic Cervical nl Cardiovascular Normal S1, Normal S2, S3, No JVD. Lungs: fine crackles at bases bilaterally Abdomen Soft, No Tenderness, obese Neurological Normal Speech, Cranial Nerves 3-12 NL Extremities 3+ pitting edema bilaterally without venous stasis dermatitis Pertinent lab findings: WBC 8.8, 79.9% granulocytes, HB 12.8, Renal function- BUN 25, creatinine 1.4 (baseline 1.5), lactic acid 1.6 Liver chemistries- total bilirubin 0.7, AST 205, ALT 188, alkaline phosphatase 214, Cardiac enzymes- troponin 0.04, BNP 918. Chest x-ray showed no consolidation or pulmonary edema. CT abdomen/pelvis shows splenomegaly, diverticulosis, BPH. Etiology in his case is likely multifactorial. Last echocardiogram does not show any systolic dysfunction, but diastolic dysfunction is likely, although not read in the report. Also, acute bronchitis is possible. Pt has a remote h/o of COPD, which could be investigated further. Other casues such as pneumonia is ruled out so far. 1. Shortness of breath- Would continue to treat both fluid overload, and also pulmonary component. - Increase the dose of lasix to iv bid. - Monitor ins and outs carefully. - Decrease the dose based upon renal fn, and urine output. - Echocardiogram to evaluate the systolic fn. - Serial EKGs and trops. - Cardiology consult was called. - Continue iv solumedrol for now, but would change to iv bid in the am. - Continue azithromycin fo rnow. 2. Diabetes- Continue home dose of levemir, and start novolog. Would change the dose of novolog, after his diet is more regular. 3. Abnormal liver chemistries- would follow up US results. - COntinue to follow. - Etiology due to congestion. Housekeeping- DVT PPx- heparin sc Problem List: 1. Dyspnea 2. Transaminitis 3. Bronchitis 4. Hyperglycemia Pain Ratin Pain Location: back Pain Goal: Pain 4 or less Pain Plan: tylenol Tomorrow's Labs & Rationales: cbc bep lfts. Sonja Germain MD 05/22/17 1631: Attending MD Review Statement Attending Statement Attending MD Statement: examined this patient, discuss w/resident/PA/ASSISTANT INFANT TEACHER, agreed w/resident/PA/ASSISTANT INFANT TEACHER, reviewed EMR data (avail) Attending Assessment/Plan: 82M PMH HTN, T2DM, HLD, CKD stage 3, SVT s/p PPM, dementia, tachybrady syndrome underwent PPM, no prior h/o CHF admitted with dyspnea, weakness, and cough in the setting of CHF and COPD exacerbations, started on IV Lasix and IV Solumedrol. Patient still SOB but no other complaints, feels well. Coarse breaeth sounds on lung exam, LE edema noted. CXR negative, CT abdomen and abdominal ultrasound normal. LFTs elevated. 1. Acute CHF, undetermined type 2. COPD Exacerbation 3. Hypervolemia Plan - Continue on telemetry - Lasix 40mg IV BID - Solumedrol 40mg q8h, will taper tomorrow - May continue Azithro for now - Sputum culture - Continue home medications - Echocardiogram - Pulmonary and cardiology consults - DVT PPx
[2017-05-22 10:58] VITALS: BP 177/84
--- NOTE | 2017-05-22 10:59 | ULTRASOUND REPORT ---
EXAMINATION: US ABDOMEN COMPLETE CLINICAL INFORMATION: Transaminitis. Rule out any pathology. COMPARISON: CT scan of the abdomen and pelvis dated 05/21/2017 TECHNIQUE: Real-time imaging of the abdominal viscera. FINDINGS: PANCREAS: The pancreatic body is visualized and appears unremarkable. Remainder of the pancreas is obscured by overlying bowel gas. ABDOMINAL AORTA: The proximal segment is normal in caliber. INFERIOR VENA CAVA: Visualized portions are normal. LIVER: Poorly visualized. The liver demonstrates normal size and contour. There is increased in hepatic echogenicity seen, likely artifactual due to technically suboptimal images. No focal lesion or intrahepatic biliary duct dilatation. GALLBLADDER: Normal. The gallbladder is physiologically distended without evidence of stones, sludge, polyps, wall thickening or pericholecystic fluid. COMMON BILE DUCT: Normal in caliber measuring 0.3 cm in diameter. RIGHT KIDNEY: Mild renal cortical thinning is seen. No hydronephrosis. No renal calculi or focal parenchymal lesions. The kidney measures 10.5 cm in maximum dimension. LEFT KIDNEY: Mild renal cortical thinning is seen. No hydronephrosis. No renal calculi or focal parenchymal lesions. The kidney measures 10.5 cm in maximum dimension. SPLEEN: Enlarged. The spleen measures 14.9 cm in maximum dimension. FREE FLUID: None. IMPRESSION: 1. Pancreatic body unremarkable. Remainder of pancreas obscured by overlying bowel gas. 2. Liver poorly visualized. 3. Enlarged spleen. 4. Otherwise unremarkable exam.
--- NOTE | 2017-05-22 11:19 | Cons- Cardiology ---
General Information and HPI Consulting Request Date of Consult: 05/22/17 Requested By: Sonja Germain MD Reason for Consult: CHF History of Present Illness: The patient is an 82-year-old male with history of hypertension, hyperlipidemia, diabetes mellitus, and permanent pacemaker who was brought to the hospital by ambulance for shortness of breath. The shortness of breath has been worsening over the past few days. He has been using 2 pillows to sleep at night. He notes recent weight gain. No chest pain. No palpitations. No diaphoresis. He notes recent cough and congestion. He also notes recent lower extremity swelling. He was recently prescribed Bactrim for bronchitis. He was also told to double his furosemide dose to 40 mg per day. No syncope. No diaphoresis. No nausea or vomiting. No hemoptysis. Allergies/Medications Allergies: Coded Allergies: NO KNOWN ALLERGIES (08/27/12) Home Med List: Atorvastatin Calcium 20 MG TABLET 1 TAB PO DAILY cholesterol (Reported) Diltiazem HCl (Diltiazem 12HR ER) 60 MG CAP.ER.12H 1 TAB PO BID HEART RATE ( Reported) Donepezil HCl 10 MG TABLET 1 TAB PO DAILY CONFUSION (Reported) Escitalopram Oxalate 20 MG TABLET 1 TAB PO DAILY DEPRESSION (Reported) Furosemide 20 MG TABLET 1 TAB PO DAILY Swelling (Reported) Insulin Detemir (Levemir) 100 UNIT/ML VIAL 30 UNITS SC DAILY DIABETES Insulin Regular (Novolin R Inj) 1,000 UNITS/10 ML MADHAVI 0 UNITS SC SEE ADMIN CRITERIA DIABETES (Reported) BEFORE MEALS BEFORE MEALS Blood Insulin Sugar Units <80 0 81-100 0 101-150 2 151-200 4 201-250 6 251-300 8 301-350 10 351-400 12 >400 Call Doctor Losartan (Cozaar) 100 MG TABLET 1 TAB PO DAILY high blood pressure Memantine HCl (Namenda) 10 MG TABLET 1 TAB PO DAILY dementia (Reported) Trazodone HCl 50 MG TABLET 0.5 TAB PO TIDPRN PRN Anxiety/Behavioral disturbance (Reported) Current Medications: Current Medications Sig/Lolis Start time Last Medication Dose Route Stop Time Status Admin Azithromycin 500 MG DAILY 05/22 1000 AC 05/22 Sodium Chloride 250 ML IV 05/26 1059 1014 Diltiazem HCl 60 MG BID 05/22 1000 AC 05/22 PO 1014 Furosemide 40 MG 7:30 AM, & 4:30 PM 05/22 1630 AC 05/22 IV 1708 Furosemide 0 .STK-MED ONE 05/22 1006 DC IV Furosemide 0 .STK-MED ONE 05/22 0003 DC IV Furosemide 40 MG DAILY 05/21 2315 DC 05/22 IV 1014 Heparin Sodium 0 .STK-MED ONE 05/22 1444 DC (Porcine) .ROUTE Heparin Sodium 0 .STK-MED ONE 05/22 0614 DC (Porcine) .ROUTE Heparin Sodium 0 .STK-MED ONE 05/22 0028 DC (Porcine) .ROUTE Heparin Sodium 5,000 UNIT Q8 05/22 0015 AC 05/22 (Porcine) SC 1445 Insulin Aspart 0 TIDAC 05/22 1700 AC 05/22 SC 1708 Insulin Aspart 0 TIDAC 05/22 0800 CAN SC Insulin Detemir 10 UNITS BID 05/22 1000 AC 05/22 SC 1058 Insulin Human Regular 0 Q6 05/22 0600 DC 05/22 SC 1237 Losartan Potassium 100 MG DAILY 05/22 1000 AC 05/22 PO 1014 Memantine 10 MG DAILY 05/22 1000 AC 05/22 PO 1014 Memantine 20 MG BID 05/21 2328 DC PO Methylprednisolone 40 MG Q12 05/23 1000 UNVr IV Methylprednisolone 0 .STK-MED ONE 05/22 1446 DC .ROUTE Methylprednisolone 40 MG Q8 05/22 0600 r 05/22 IV 05/22 2300 1445 Trazodone HCl 25 MG TIDPRN PRN 05/21 2330 AC PO Review of Systems Review of Systems: No Rash. No tremor. No melena. No diaphoresis. All other systems were reviewed, and were noted to be negative. Past History Travel History Traveled to [place] past 21 day No Medical History Neurological: dizziness, vertigo EENT: NONE Cardiovascular: hypertension, hyperlipidemia, syncope Respiratory: NONE Gastrointestinal: NONE Hepatic: NONE Renal: chronic kidney disease (stage3), bladder stones Musculoskeletal: osteoarthritis Psychiatric: NONE Endocrine: diabetes Blood Disorders: NONE Cancer(s): NONE SHUTTLE FIXER/Reproductive: NONE Surgical History Surgical History: cystoscopy, hernia repair-inguinal, Lithotrpsy Family History Relations & Conditions If Any: FATHER (CAD, 2/2 AMI in 60's). Psychosocial History Who Do You Live With? spouse Services at Home: None Primary Language: German Smoking Status: Former Smoker Living Will? no Functional Ability ADLs Independent: dressing, eating, toileting, bathing. Ambulation: independent IADLs Independent: shopping, housework, finances, food prep, telephone, transportation , medication admin. Exam & Diagnostic Data Vital Signs and I&O Vital Signs Date Time Temp Pulse Resp B/P B/P Pulse O2 O2 Flow FiO2 Mean Ox Delivery Rate 05/22 1600 Nasal 2.0L Cannula 05/22 1600 97.9 86 20 142/70 95 Nasal 2.0L Cannula 05/22 1214 95.5 80 16 121/58 95 Nasal 2.0L Cannula 05/22 1213 97.5 80 16 121/58 95 Nasal 2.0L Cannula 05/22 1058 82 20 177/84 96 Nasal 1.5L Cannula 05/22 1014 97.9 92 20 174/90 05/22 1014 97.9 92 20 174/90 05/22 1013 Nasal 2.0L Cannula 05/22 1012 Nasal 1.5L Cannula 05/22 0744 95.5 90 20 157/75 96 Nasal 2.0L Cannula 05/22 0615 95.5 90 20 157/75 Nasal 2.0L Cannula 05/22 0000 95 Nasal 2.0L Cannula 05/21 2307 98.6 84 16 144/69 95 Nasal 1.0L Cannula 05/21 2300 96.5 80 18 147/67 96 Nasal 2.0L Cannula 05/21 2121 100.2 80 20 144/73 96 Nasal 1.0L Cannula Intake & Output 05/22 1600 05/22 0800 05/22 0000 05/21 1600 05/21 0800 05/21 0000 Intake Total 480 200 420 Output Total 1700 2600 300 Balance -1220 -2400 120 Intake, IV 200 Intake, Oral 480 420 Output, Urine 1700 2600 300 Patient 240 lb Weight Weight Estimated Measurement Method Physical Exam: Gen: The patient is in no acute distress HEENT: Normal nose, ears, and oropharynx. Pupils equal bilaterally. Conjunctiva normal. Neck: Supple with no JVD, no masses, and no thyromegaly Lungs: Bilateral rales with normal respiratory effort Heart: RRR, S1, S2, no murmurs. No peripheral edema, 2+ pulses in the lower extremities bilaterally Abdomen: Soft, nontender, no masses. No hepatomegaly. No splenomegaly Extremities: No clubbing or cyanosis. Normal muscle strength in the upper and lower extremities Skin: Normal skin turgor with no skin ulcers or lesions noted. Neuro: Cranial nerves intact. Sensation intact Psych: Alert and oriented 3 with appropriate affect Labs/Regan Results: Laboratory Tests 05/22 05/22 05/22 0600 0600 0042 Chemistry Sodium (137 - 145 mmol/L) 137 Potassium (3.5 - 5.1 mmol/L) 4.8 Chloride (98 - 107 mmol/L) 99 Carbon Dioxide (22 - 30 mmol/L) 27 Anion Gap (5 - 16) 11 BUN (9 - 20 mg/dL) 25 H Creatinine (0.7 - 1.2 mg/dL) 1.3 H Estimated GFR (>60 ml/min) 53 L BUN/Creatinine Ratio (7 - 25 %) 19.2 Troponin I (<0.11 ng/ml) 0.04 Hematology CBC w Diff MAN DIFF ORDERED WBC (4.8 - 10.8 /CUMM) 7.5 RBC (4.70 - 6.10 /CUMM) 4.16 L Hgb (14.0 - 18.0 G/DL) 11.9 L Hct (42 - 52 %) 35.8 L MCV (80.0 - 94.0 FL) 86.0 MCH (27.0 - 31.0 PG) 28.5 RDW (11.5 - 14.5 %) 14.6 H Plt Count (130 - 400 /CUMM) 131 MPV (7.4 - 10.4 FL) 7.6 Gran % (42.2 - 75.2 %) 89.3 H Lymphocytes % (20.5 - 51.1 %) 8.7 L Monocytes % (1.7 - 9.3 %) 2.0 Eosinophils % (0 - 5 %) 0 Basophils % (0.0 - 2.0 %) 0 Absolute Granulocytes (1.4 - 6.5 /CUMM) 6.7 H Segmented Neutrophils (42.2 - 75.2 %) 80 H Band Neutrophils (0.0 - 5.0 %) 3 Absolute Lymphocytes (1.2 - 3.4 /CUMM) 0.6 L Lymphocytes (20.5 - 51.1 %) 16 L Monocytes (1.7 - 9.3 %) 1 L Absolute Monocytes (0.10 - 0.60 /CUMM) 0.2 Absolute Eosinophils (0.0 - 0.7 /CUMM) 0 Absolute Basophils (0.0 - 0.2 /CUMM) 0 Platelet Estimate (ADEQUATE) DECREASED Normocytic RBCs VERIFIED Normochromic RBCs VERIFIED PUBS MCHC (33.0 - 37.0 G/DL) 33.2 Serology Infectious [place] Titer (NEGATIVE) NEGATIVE 05/22 05/21 05/21 0042 2310 2301 Chemistry Magnesium (1.6 - 2.3 mg/dL) 1.9 Troponin I (<0.11 ng/ml) 0.06 Coagulation D-Dimer High Sensitivty (0 - 243 ng/ml) 288 H Serology Hepatitis A IgM Ab (NONREACTIVE) NONREACTIVE Hep Bs Antigen (NONREACTIVE) NONREACTIVE Hep B Core IgM Ab Conf (NONREACTIVE) NONREACTIVE Hepatitis C Antibody (NONREACTIVE) NONREACTIVE Urines Urine Color (YEL,AMB,STR) YEL Urine Clarity (CLEAR) CLEAR Urine pH (5.0 - 8.0) 6.0 Ur Specific [place] (1.001 - 1.035) 1.010 Urine Protein (NEG,<30 MG/DL) NEG Urine Ketones (NEG) NEG Urine Nitrite (NEG) NEG Urine Bilirubin (NEG) NEG Urine Urobilinogen (0.1 - 1.0 EU/dl) 0.2 Ur Leukocyte Esterase (NEG) NEG Ur Microscopic EXAM NOT REQUIRED Urine Hemoglobin (NEG) NEG Urine Glucose (N MG/DL) >=1000 H 05/218 1658 Chemistry Sodium (137 - 145 mmol/L) 139 Potassium (3.5 - 5.1 mmol/L) 4.6 Chloride (98 - 107 mmol/L) 96 L Carbon Dioxide (22 - 30 mmol/L) 28 Anion Gap (5 - 16) 15 BUN (9 - 20 mg/dL) 25 H Creatinine (0.7 - 1.2 mg/dL) 1.4 H Estimated GFR (>60 ml/min) 49 L BUN/Creatinine Ratio (7 - 25 %) 17.9 Glucose (65 - 99 mg/dL) 158 H Hemoglobin A1c (4.2 - 5.8 %) 6.8 H Lactic Acid (0.7 - 2.1 mmol/L) Cancelled 1.6 Calcium (8.4 - 10.2 mg/dL) 8.9 Iron (49 - 181 ug/dL) 24 L TIBC (261 - 462 ug/dL) 291 Ferritin (17.9 - 464 ng/mL) 188.0 Total Bilirubin (0.2 - 1.3 mg/dL) 0.7 AST (17 - 59 U/L) 205 H ALT (21 - 72 U/L) 188 H Alkaline Phosphatase (< 127 U/L) 214 H Troponin I (<0.11 ng/ml) 0.04 Luo-[id number] Pept (<125 pg/mL) 918 H Total Protein (6.3 - 8.2 g/dL) 6.6 Albumin (3.5 - 5.0 g/dL) 3.6 Globulin (1.9 - 4.2 gm/dL) 3.0 Albumin/Globulin Ratio (1.1 - 2.2 %) 1.2 Hematology CBC w Diff NO MAN DIFF REQ WBC (4.8 - 10.8 /CUMM) 8.8 RBC (4.70 - 6.10 /CUMM) 4.45 L Hgb (14.0 - 18.0 G/DL) 12.8 L Hct (42 - 52 %) 38.2 L MCV (80.0 - 94.0 FL) 85.8 MCH (27.0 - 31.0 PG) 28.7 RDW (11.5 - 14.5 %) 14.8 H Plt Count (130 - 400 /CUMM) 195 MPV (7.4 - 10.4 FL) 7.4 Gran % (42.2 - 75.2 %) 79.9 H Lymphocytes % (20.5 - 51.1 %) 7.3 L Monocytes % (1.7 - 9.3 %) 11.2 H Eosinophils % (0 - 5 %) 1.6 Basophils % (0.0 - 2.0 %) 0 Absolute Granulocytes (1.4 - 6.5 /CUMM) 7.0 H Absolute Lymphocytes (1.2 - 3.4 /CUMM) 0.6 L Absolute Monocytes (0.10 - 0.60 /CUMM) 1.0 H Absolute Eosinophils (0.0 - 0.7 /CUMM) 0.1 Absolute Basophils (0.0 - 0.2 /CUMM) 0 PUBS MCHC (33.0 - 37.0 G/DL) 33.4 Toxicology Acetaminophen (10.0 - 30.0 ug/mL) < 10.0 L Diagnostic Data EKG Results EKG tracing is independently reviewed, and reveals ventricular paced rhythm at 82 CXR Results Limited examination. No evidence of dense focal consolidation or overt pulmonary edema. Other Results CT scan of the abdomen and pelvis: Mild prominence of the spleen. Sigmoid diverticulosis. Enlarged prostate gland. Abdomen ultrasound 05/22/17: 1. Pancreatic body unremarkable. Remainder of pancreas obscured by overlying bowel gas. 2. Liver poorly visualized. 3. Enlarged spleen. 4. Otherwise unremarkable exam. Echocardiogram 04/27/16: 1. This was a technically difficult examination. 2. Minimal to mild aortic sclerosis is present with minimal to mild aortic insufficiency. 3. Mitral leaflet thickening is present with minimal to mild anular calcification and minimal to mild mitral insufficiency with mild left atrial enlargement. 4. There is no pericardial fluid detected. 5. The left ventricular chamber size is normal with mild concentric hypertrophy and a normal ejection fraction. 6. The right heart structures were not optimally assessed. Minimal to mild tricuspid and pulmonic insufficiency are present with no evidence of pulmonary hypertension. 7. MIld lipomatous hypertrophy of the interatrial septum is present. 8. The patient was bradycardic during the examination. ECG or Holter monitor correlation is suggested. Assessment/Plan Assessment/Plan Assessment: 1. Hypertension 2. Diabetes mellitus 3. Permanent pacemaker 4. History of SVT 5. Bronchitis 6. Possible acute heart failure exacerbation Plan: * Lasix 40 mg IV every 12 hours * Monitor input and output with daily weights * Continue other cardiac medications * Echocardiogram Consult Acknowledgment - Thank you for your consult request.
[2017-05-22 12:14] VITALS: BP 121/58
[2017-05-22 16:00] VITALS: BP 142/70
[2017-05-22 22:00] VITALS: BP 132/66
[2017-05-23 07:11] VITALS: BP 130/60
--- NOTE | 2017-05-23 07:35 | PN- Housestaff ---
[place]ila[place]ina 05/23/17 0734: Subjective Follow-up For: CHF Bronchitis Complaints: no complaints Tele-Events Since Last Visit: Single pacing, heart rate 70s-80s, no overnight events. Subjective: Mr. Toribio was comfortable this morning. He did not have any new complaints, no shortness of breath, chest pain, palpitations. Cough improved. Blood pressure remains stable, he was afebrile. Fluid balance -4349 ml. Review of Systems Constitutional: Reports: see HPI. Objective Last 24 Hrs of Vital Signs/I&O Vital Signs Date Time Temp Pulse Resp B/P B/P Pulse O2 O2 Flow FiO2 Mean Ox Delivery Rate 05/23 0711 98.4 75 20 130/60 91 Nasal Cannula 05/23 0000 Nasal 2.0L Cannula 05/22 2200 87 132/66 05/22 2200 98.4 81 20 95 Nasal Cannula 05/22 2126 87 132/66 05/22 1600 Nasal 2.0L Cannula 05/22 1600 97.9 86 20 142/70 95 Nasal 2.0L Cannula 05/22 1214 95.5 80 16 121/58 95 Nasal 2.0L Cannula 05/22 1213 97.5 80 16 121/58 95 Nasal 2.0L Cannula 05/22 1058 82 20 177/84 96 Nasal 1.5L Cannula 05/22 1014 97.9 92 20 174/90 05/22 1014 97.9 92 20 174/90 05/22 1013 Nasal 2.0L Cannula 05/22 1012 Nasal 1.5L Cannula 05/22 0744 95.5 90 20 157/75 96 Nasal 2.0L Cannula Intake & Output 05/23 0800 05/23 0000 05/22 1600 Intake Total 100 71 480 Output Total 641 022 0960 Balance -600 -729 -1220 Intake, IV 11 Intake, Oral 100 60 480 Number 0 0 Bowel Movements Output, Urine [phone] Physical Exam General Appearance: No Acute Distress Other Physical Findings: General Appearance Alert, Cooperative, No Acute Distress, orientedx2 Skin Lesion on right side maxillary area. HEENT Atraumatic, PERRLA, EOMI, posterior pharynx erythematous Lymphatic Cervical nl Cardiovascular Normal S1, Normal S2, S3, No JVD. Lungs: fine crackles at bases bilaterally Abdomen Soft, No Tenderness, obese Neurological Normal Speech, Cranial Nerves 3-12 NL Extremities 2+ pitting edema bilaterally without venous stasis dermatitis Current Medications: Current Medications Sig/Lolis Start time Last Medication Dose Route Stop Time Status Admin Artificial Tears 2 GTT 4 TIMES/DAY 05/22 2200 AC 05/22 OPH 2233 Azithromycin 500 MG DAILY 05/22 1000 AC 05/22 Sodium Chloride 250 ML IV 05/26 1059 1014 Diltiazem HCl 60 MG BID 05/22 1000 AC 05/22 PO 2126 Furosemide 40 MG 7:30 AM, & 4:30 PM 05/22 1630 AC 05/22 IV 1708 Furosemide 0 .STK-MED ONE 05/22 1006 DC IV Furosemide 40 MG DAILY 05/21 2315 DC 05/22 IV 1014 Heparin Sodium 0 .STK-MED ONE 05/22 1444 DC (Porcine) .ROUTE Heparin Sodium 5,000 UNIT Q8 05/22 0015 AC 05/23 (Porcine) SC 0531 Insulin Aspart 0 TIDAC 05/23 0800 UNVr SC Insulin Aspart 0 TIDAC 05/22 1700 DC 05/22 SC 1708 Insulin Detemir 10 UNITS BID 05/22 1000 AC 05/22 SC 2233 Insulin Human Regular 0 Q6 05/22 0600 DC 05/22 SC 1237 Losartan Potassium 100 MG DAILY 05/22 1000 AC 05/22 PO 1014 Memantine 10 MG DAILY 05/22 1000 AC 05/22 PO 1014 Methylprednisolone 40 MG Q12 05/23 1000 AC IV Methylprednisolone 0 .STK-MED ONE 05/22 1446 DC .ROUTE Methylprednisolone 40 MG Q8 05/22 0600 DC 05/22 IV 05/22 2300 2126 Trazodone HCl 25 MG TIDPRN PRN 05/21 2330 AC 05/22 PO 2125 Last 24 Hrs of Lab/Regan Results Last 24 Hrs of Labs/Mics: Laboratory Tests 05/23/17 0610: Sodium Pending, Potassium Pending, Chloride Pending, Carbon Dioxide Pending, Anion Gap Pending, BUN Pending, Creatinine Pending, BUN/Creatinine Ratio Pending , CBC w Diff Pending, WBC Pending, RBC Pending, Hgb Pending, Hct Pending, MCV Pending, MCH Pending, RDW Pending, Plt Count Pending, MPV Pending, PUBS MCHC Pending Microbiology 05/22 1852 LOWER RESP: Respiratory Culture - COLB 05/22 1852 LOWER RESP: Gram Stain - COLB Assessment/Plan Assessment: Mr. Toribio is an 82 yr old gentleman w/ dementia, PMHx of BPV, HTN, HLD, syncope, CKD stage 3a, insulin treated DM, tachy-alejandra syndrome s/p PPM, depression who is being evaluated for worsening dyspnea in the last few weeks likely secondary to diastolic cardiac dysfunction and bronchitis. At the time of admission, Tm 100.2, AZ 80, RR 20, BP 144/73, O2 sat 96% 1L NC. Pertinent lab findings: WBC 8.8--> 11.5 (likely due to steroids) HB 12.8--> 11.5 Renal function- BUN 25, creatinine 1.4 (05/22/2017)-->1.7 (05/23/2017). lactic acid 1.6 Liver chemistries- total bilirubin 0.7, AST 205, ALT 188, alkaline phosphatase 214, Cardiac enzymes- troponin 0.04, BNP 918. Ultrasound abdomen 05/22/17 / 0 1. Pancreatic body unremarkable. Remainder of pancreas obscured by overlying bowel gas. 2. Liver poorly visualized. 3. Enlarged spleen. 4. Otherwise unremarkable exam. Chest x-ray showed no consolidation or pulmonary edema. CT abdomen/pelvis shows splenomegaly, diverticulosis, BPH. Etiology in his case is likely multifactorial. Last echocardiogram does not show any systolic dysfunction, but diastolic dysfunction is likely, although not read in the report. Also, acute bronchitis is possible. 1. Shortness of breath- Would continue to treat both fluid overload, and also pulmonary component. -Last dose of IV Lasix this a.m. Change to by mouth Lasix in the morning. - Monitor ins and outs carefully. - Echocardiogram pending at this time. - Human Services Supervisor, Dr. Ramirez advising. - Continue iv solumedrol for now, but would change to by mouth prednisone. Would probably do 4 days of 40 mg. - Continue azithromycin fo . 2. Diabetes- increased the dose of Levemir to 12 units twice a day, and change the sliding scale to high dose, to reflect his home medication. 3. Abnormal liver chemistries- -We'll recheck LFTs in the a.m. -Ultrasound did not reveal any choledocholithiasis, cholecystitis or CBD dilatation. -Incidental finding of enlarged spleen, clinical significance unknown at this time. Housekeeping- DVT PPx- heparin sc Problem List: 1. Dyspnea 2. Transaminitis 3. Bronchitis Pain Ratin Pain Location: Back pain Pain Goal: Pain 4 or less Pain Plan: Tylenol when necessary Tomorrow's Labs & Rationales: C BC BP Sonja Germain MD 05/23/17 1354: Attending MD Review Statement Attending Statement Attending MD Statement: examined this patient, discuss w/resident/PA/PHOTOGRAMMETRIC COMPILATION SPECIALIST, agreed w/resident/PA/PHOTOGRAMMETRIC COMPILATION SPECIALIST, reviewed EMR data (avail) Attending Assessment/Plan: 82M PMH HTN, T2DM, HLD, CKD stage 3, SVT s/p PPM, dementia, tachybrady syndrome underwent PPM, no prior h/o CHF admitted with dyspnea, weakness, and cough in the setting of CHF and COPD exacerbations, started on IV Lasix and IV Solumedrol. Patient still SOB but no other complaints, feels well. Breath sounds improved. CXR negative, CT abdomen and abdominal ultrasound normal. LFTs elevated. 1. Acute CHF, undetermined type 2. COPD Exacerbation 3. Hypervolemia Plan - Continue on telemetry - Lasix 40mg IV daily - Solumedrol 40mg q12h, will convert to PO tomorrow - May continue Azithro for now - Sputum culture - Continue home medications - Echocardiogram - Pulmonary and cardiology consults - DVT PPx - Anticipated discharge tomorrow
[2017-05-23 08:34] LABS: ABSOLUTE BASOPHIL COUNT 0 /CUMM (0.0-0.2); ABSOLUTE EOSINOPHIL COUNT 0 /CUMM (0.0-0.7); ABSOLUTE GRANULOCYTE CT 10.1 /CUMM (1.4-6.5); ABSOLUTE LYMPH COUNT 0.9 /CUMM (1.2-3.4); ABSOLUTE MONOCYTE COUNT 0.4 /CUMM (0.10-0.60); BASOPHIL % 0.1 % (0.0-2.0); EOSINOPHIL % 0 % (0-5); HEMATOCRIT 34.3 % (42-52); MEAN CORPUSCULAR HGB CONC 33.7 G/DL (33.0-37.0); MEAN CORPUSCULAR VOLUME 86.3 FL (80.0-94.0); MEAN PLATELET VOLUME 7.8 FL (7.4-10.4); RBC DISTRIBUTION WIDTH 14.6 % (11.5-14.5); RED BLOOD CELL CT 3.98 /CUMM (4.70-6.10)
[2017-05-23 09:36] LABS: GRANULOCYTE % 88.4 % (42.2-75.2); PLATELET COUNT 204 /CUMM (130-400); WHITE BLOOD CELL COUNT 11.5 /CUMM (4.8-10.8)
--- NOTE | 2017-05-23 11:24 | PN- Cardiology ---
Subjective Subjective: Doing better. Shortness of breath significantly improved. No chest pain. No palpitations. Objective Vital Signs and I&Os Vital Signs Date Time Temp Pulse Resp B/P B/P Pulse O2 O2 Flow FiO2 Mean Ox Delivery Rate 05/23 0900 94 Nasal 2.0L Cannula 05/23 0821 130/70 05/23 0820 130/70 05/23 0711 98.4 75 20 130/60 91 Nasal Cannula 05/23 0000 Nasal 2.0L Cannula 05/22 2200 87 132/66 05/22 2200 98.4 81 20 95 Nasal Cannula 05/22 2126 87 132/66 05/22 1600 Nasal 2.0L Cannula 05/22 1600 97.9 86 20 142/70 95 Nasal 2.0L Cannula 05/22 1214 95.5 80 16 121/58 95 Nasal 2.0L Cannula 05/22 1213 97.5 80 16 121/58 95 Nasal 2.0L Cannula Intake & Output 05/23 1600 05/23 0800 05/23 0000 05/22 1600 05/22 0800 05/22 0000 Intake Total 100 71 480 200 420 Output Total 232 933 5541 2600 300 Balance -600 -729 -1220 -2400 120 Intake, IV 11 200 Intake, Oral 100 60 480 420 Number 0 0 Bowel Movements Output, Urine 702 257 5965 2600 300 Patient 240 lb Weight Weight Estimated Measurement Method Physical Exam: Gen: The patient is in no acute distress HEENT: Normal nose, ears, and oropharynx. Pupils equal bilaterally. Conjunctiva normal. Neck: Supple with no JVD, no masses, and no thyromegaly Lungs: Bilateral rales with normal respiratory effort Heart: RRR, S1, S2, no murmurs. No peripheral edema, 2+ pulses in the lower extremities bilaterally Abdomen: Soft, nontender, no masses. No hepatomegaly. No splenomegaly Extremities: No clubbing or cyanosis. Normal muscle strength in the upper and lower extremities Skin: Normal skin turgor with no skin ulcers or lesions noted. Neuro: Cranial nerves intact. Sensation intact Current Medications: Current Medications Sig/Lolis Start time Last Medication Dose Route Stop Time Status Admin Artificial Tears 2 GTT 4 TIMES/DAY 05/22 2200 AC 05/23 OPH 1009 Azithromycin 500 MG DAILY 05/22 1000 AC 05/23 Sodium Chloride 250 ML IV 05/26 1059 0928 Diltiazem HCl 60 MG BID 05/22 1000 AC 05/23 PO 0821 Furosemide 40 MG DAILY 05/24 1000 AC PO Furosemide 40 MG DAILY 05/23 1000 DC IV Furosemide 40 MG 7:30 AM, & 4:30 PM 05/22 1630 DC 05/23 IV 0819 Heparin Sodium 0 .STK-MED ONE 05/22 1444 DC (Porcine) .ROUTE Heparin Sodium 5,000 UNIT Q8 05/22 0015 AC 05/23 (Porcine) SC 0531 Insulin Aspart 0 TIDAC 05/23 0800 AC 05/23 SC 0820 Insulin Aspart 0 TIDAC 05/22 1700 DC 05/22 SC 1708 Insulin Detemir 12 UNITS BID 05/23 1000 AC SC Insulin Detemir 10 UNITS BID 05/22 1000 DC 05/23 SC 0820 Insulin Human Regular 0 Q6 05/22 0600 DC 05/22 SC 1237 Losartan Potassium 100 MG DAILY 05/22 1000 AC 05/23 PO 0820 Memantine 10 MG DAILY 05/22 1000 AC 05/23 PO 0820 Methylprednisolone 40 MG Q12 05/23 1000 AC 05/23 IV 05/23 2300 0819 Methylprednisolone 0 .STK-MED ONE 05/22 1446 DC .ROUTE Methylprednisolone 40 MG Q8 05/22 0600 DC 05/22 IV 05/22 2300 2126 Prednisone 40 MG DAILY 05/24 1000 AC PO Trazodone HCl 25 MG TIDPRN PRN 05/21 2330 AC 05/22 PO 2125 Results Last 48 Hrs of Labs/Mics: Laboratory Tests 05/23/17 0610: Anion Gap 10, Estimated GFR 39 L, BUN/Creatinine Ratio 23.5, CBC w Diff NO MAN DIFF REQ, RBC 3.98 L, MCV 86.3, MCH 29.0, RDW 14.6 H, MPV 7.8, Gran % 88.4 H, Lymphocytes % 7.7 L, Monocytes % 3.8, Eosinophils % 0, Basophils % 0.1, Absolute Granulocytes 10.1 H, Absolute Lymphocytes 0.9 L, Absolute Monocytes 0.4, Absolute Eosinophils 0, Absolute Basophils 0, PUBS MCHC 33.7 05/22/17 0600: Troponin I 0.04 05/22/17 0600: Anion Gap 11, Estimated GFR 53 L, BUN/Creatinine Ratio 19.2, CBC w Diff MAN DIFF ORDERED, RBC 4.16 L, MCV 86.0, MCH 28.5, RDW 14.6 H, MPV 7.6, Gran % 89.3 H, Lymphocytes % 8.7 L, Monocytes % 2.0, Eosinophils % 0, Basophils % 0, Absolute Granulocytes 6.7 H, Segmented Neutrophils 80 H, Band Neutrophils 3, Absolute Lymphocytes 0.6 L, Lymphocytes 16 L, Monocytes 1 L, Absolute Monocytes 0.2, Absolute Eosinophils 0, Absolute Basophils 0, Platelet Estimate DECREASED, Normocytic RBCs VERIFIED, Normochromic RBCs VERIFIED, PUBS MCHC 33.2 05/22/17 0042: Infectious [place] Titer NEGATIVE 05/22/17 0042: D-Dimer High Sensitivty 288 H, Hepatitis A IgM Ab NONREACTIVE, Hep Bs Antigen NONREACTIVE, Hep B Core IgM Ab Conf NONREACTIVE, Hepatitis C Antibody NONREACTIVE 05/21/17 2310: Urine Color YEL, Urine Clarity CLEAR, Urine pH 6.0, Ur Specific [place] 1.010, Urine Protein NEG, Urine Ketones NEG, Urine Nitrite NEG, Urine Bilirubin NEG, Urine Urobilinogen 0.2, Ur Leukocyte Esterase NEG, Ur Microscopic EXAM NOT REQUIRED, Urine Hemoglobin NEG, Urine Glucose >=1000 H 05/21/17 2301: Magnesium 1.9, Troponin I 0.06 05/21/17 1948: Lactic Acid Cancelled 05/21/17 1658: Anion Gap 15, Estimated GFR 49 L, BUN/Creatinine Ratio 17.9, Glucose 158 H, Hemoglobin A1c 6.8 H, Lactic Acid 1.6, Calcium 8.9, Iron 24 L, TIBC 291, Ferritin 188.0, Total Bilirubin 0.7, AST 205 H, ALT 188 H, Alkaline Phosphatase 214 H, Troponin I 0.04, Oyg-C-Nktojbmgrwm Pept 918 H, Total Protein 6.6, Albumin 3.6, Globulin 3.0, Albumin/Globulin Ratio 1.2, CBC w Diff NO MAN DIFF REQ, RBC 4.45 L, MCV 85.8, MCH 28.7, RDW 14.8 H, MPV 7.4, Gran % 79.9 H, Lymphocytes % 7.3 L, Monocytes % 11.2 H, Eosinophils % 1.6, Basophils % 0, Absolute Granulocytes 7.0 H, Absolute Lymphocytes 0.6 L, Absolute Monocytes 1.0 H, Absolute Eosinophils 0.1, Absolute Basophils 0, PUBS MCHC 33.4 , Acetaminophen < 10.0 L Microbiology 05/21 2310 URINE ROUT: Urine Culture - COMP 05/21 2010 NASOPHARYN: Influenza Virus A & B Rapid Smear - COMP Assessment/Plan Assessment/Plan Assessment: 1. Hypertension 2. Diabetes mellitus 3. Permanent pacemaker 4. History of SVT 5. Bronchitis 6. Possible acute heart failure exacerbation Plan: * Discontinue IV Lasix. The increase in BUN and creatinine suggest the patient is fully diuresed * Would resume his usual dose of oral Lasix, 20 mg daily * To other cardiac medications Continue telemetry? Yes
--- NOTE | 2017-05-23 13:47 | Discharge Summary ---
Visit Information Visit Dates Admission Date: 05/22/17 Discharge Date: 05/25/17 Hospital Course Course Attending Physician: Ludmila ROACH Primary Care Physician: Jun ROACH,[facility] Course: Mr. Toribio is an 82 yr old gentleman w/ PMHx of dementia, BPV, HTN, HLD, syncope, CKD stage 3a, insulin treated DM, tachy-alejandra syndrome s/p PPM who was evaluated for worsening dyspnea in the last few weeks likely secondary to diastolic cardiac dysfunction and bronchitis. He was recently treated w/ Bactrim for the treatment of acute bronchitis and an increased dose of furosemide for CHF, which did not alleviate his symptoms as an outpatient. At the time of admission, Tm 100.2, DC 80, RR 20, BP 144/73, O2 sat 96% 1L NC. On examination, he had fine crakles at the base of the lungs bilaterally, and 3+ pedal edema, but no raised JVP. Other pertinent lab findings: WBC 8.8, 79.9% granulocytes, HB 12.8, Renal function- BUN 25, creatinine 1.4 (baseline 1.5), lactic acid 1.6 Liver chemistries- total bilirubin 0.7, AST 205, ALT 188, alkaline phosphatase 214, Cardiac enzymes- troponin 0.04, pro BNP 918. Chest x-ray showed no consolidation or pulmonary edema. CT abdomen/pelvis shows splenomegaly, diverticulosis, BPH. ( full report below ) Etiology in his case was thought to be likely multifactorial. Last echocardiogram 04/2016 did not show any systolic dysfunction(LVEF 60%), but diastolic dysfunction was likely, although not read in the report. Also, acute bronchitis was a possible contributer. Pt has a remote h/o of COPD, which could be investigated further as an outpatient. Other causes, such as pneumonia, influenza A & B were ruled out so far. Blood cultures, urine cultures remained negative. 1. Shortness of breath- Since there was no clear cut diagnosis, that could have caused his worsening of dyspnea, he was treated w/ aggressive diuresis w/ iv furosemide and iv solumedrol for bronchitis. He showed good clinical improvement , while he was admitted to the hospital. He was requiring 2L supplemental oxygen , which was to be weaned off as his breathing allowed. He was ruled out for NV, with serial ekgs and troponin enzymes. Echocardiogram was done, and the results were pending at the time of discharge. Unfortunately, sputum cultures could not be collected. Discussed at length about limiting salt intake, and avoiding any food that causes worsening chf. Echo was done, which showed an EF of > 50-55%. NO precardial effusion. Lasix was switched to po lasxi 20 mg daily. Patient had a fluid balance of -50 on the last of hospitalization and Cr increased from 1.5 to 1.8. 2. Diabetes- Last HbA1c 6.8. He was started on slightly lower dose of levemir and novolog as compared to his home dose, as his po intake was not inadequate. The blood sugars trended up, as the po intake improved and also due to the effect of steroids. He was to be discharged on his home dose of sliding scale, and 15 U BID. 3. Abnormal liver chemistries- Etiology was thought to be due to congestion. US abdomen did not reveal any cholidocholithiasis, or cholelithiasis or any cbd dilatation. On daily trend, LFT trend leaned toward normal levels. 4. Abnormal renal function: He has a h/o ckd, likely age related or hypertension related. Although he was diabetic, and elevated BMI, he had very high glucosuria , which is likely a natural bodys homeostatic mechanism. He was aggressively diuresed in the hospital, which might have caused a slight elevation in sr creatitine( sr cr 1.7 ), which should be monitored as an outpatient. The BUN and Cr was near to base line on discharge. 5. Deconditioning: patient was ambulated by PT in RA. O2 lvl was 92% in RA. Safe to be discharged. Consultants: 1. Jordon Ramirez MD, Cardiology. Allergies: Coded Allergies: NO KNOWN ALLERGIES (08/27/12) Pertinent Lab Results: Laboratory Tests 05/23/17 0610: Anion Gap 10, Estimated GFR 39 L, BUN/Creatinine Ratio 23.5, CBC w Diff NO MAN DIFF REQ, RBC 3.98 L, MCV 86.3, MCH 29.0, RDW 14.6 H, MPV 7.8, Gran % 88.4 H, Lymphocytes % 7.7 L, Monocytes % 3.8, Eosinophils % 0, Basophils % 0.1, Absolute Granulocytes 10.1 H, Absolute Lymphocytes 0.9 L, Absolute Monocytes 0.4, Absolute Eosinophils 0, Absolute Basophils 0, PUBS MCHC 33.7 05/22/17 0600: Troponin I 0.04 05/22/17 0600 Anion Gap 11, Estimated GFR 53 L, BUN/Creatinine Ratio 19.2, CBC w Diff MAN DIFF ORDERED, RBC 4.16 L, MCV 86.0, MCH 28.5, RDW 14.6 H, MPV 7.6, Gran % 89.3 H, Lymphocytes % 8.7 L, Monocytes % 2.0, Eosinophils % 0, Basophils % 0, Absolute Granulocytes 6.7 H, Segmented Neutrophils 80 H, Band Neutrophils 3, Absolute Lymphocytes 0.6 L, Lymphocytes 16 L, Monocytes 1 L, Absolute Monocytes 0.2, Absolute Eosinophils 0, Absolute Basophils 0, Platelet Estimate DECREASED, Normocytic RBCs VERIFIED, Normochromic RBCs VERIFIED, PUBS MCHC 33.2 05/22/17 0042: Infectious [place] Titer NEGATIVE 05/22/17 0042: D-Dimer High Sensitivty 288 H, Hepatitis A IgM Ab NONREACTIVE, Hep Bs Antigen NONREACTIVE, Hep B Core IgM Ab Conf NONREACTIVE, Hepatitis C Antibody NONREACTIVE 05/21/17 2310: Urine Color YEL, Urine Clarity CLEAR, Urine pH 6.0, Ur Specific [place] 1.010, Urine Protein NEG, Urine Ketones NEG, Urine Nitrite NEG, Urine Bilirubin NEG, Urine Urobilinogen 0.2, Ur Leukocyte Esterase NEG, Ur Microscopic EXAM NOT REQUIRED, Urine Hemoglobin NEG, Urine Glucose >=1000 H 05/21/17 2301: Magnesium 1.9, Troponin I 0.06 05/21/17 1948: Lactic Acid Cancelled 05/21/17 1658: Anion Gap 15, Estimated GFR 49 L, BUN/Creatinine Ratio 17.9, Glucose 158 H, Hemoglobin A1c 6.8 H, Lactic Acid 1.6, Calcium 8.9, Iron 24 L, TIBC 291, Ferritin 188.0, Total Bilirubin 0.7, AST 205 H, ALT 188 H, Alkaline Phosphatase 214 H, Troponin I 0.04, Oxj-E-Ghhxfjyvrdo Pept 918 H, Total Protein 6.6, Albumin 3.6, Globulin 3.0, Albumin/Globulin Ratio 1.2, CBC w Diff NO MAN DIFF REQ, RBC 4.45 L, MCV 85.8, MCH 28.7, RDW 14.8 H, MPV 7.4, Gran % 79.9 H, Lymphocytes % 7.3 L, Monocytes % 11.2 H, Eosinophils % 1.6, Basophils % 0, Absolute Granulocytes 7.0 H, Absolute Lymphocytes 0.6 L, Absolute Monocytes 1.0 H, Absolute Eosinophils 0.1, Absolute Basophils 0, PUBS MCHC 33.4 , Acetaminophen < 10.0 L Microbiology 05/22 1852 LOWER RESP: Respiratory Culture - CAN Cancelled: SPECIMEN NOT RECEIVED IN LABORATORY 05/22 1852 LOWER RESP: Gram Stain - CAN Cancelled: SPECIMEN NOT RECEIVED IN LABORATORY 05/21 2310 URINE ROUT: Urine Culture - COMP 05/21 215 NASOPHARYN: Influenza Virus A & B Rapid Smear - CAN Cancelled: Cancelled via OE: DUPLICATE 05/21 2010 NASOPHARYN: Influenza Virus A & B Rapid Smear - COMP 05/21 175 BLOOD: Blood Culture - RES 05/21 173 BLOOD: Blood Culture - RES RAD - XRY-PORTABLE CHEST XRAY 05/21/17 Frontal view of the chest reveals a dual lead pacer to be present, tips overlie the right atrium and right ventricle. The lungs are hypoexpanded and the exam is limited by overlying soft tissue. There is no area of focal dense consolidation seen. No pleural effusion or pneumothorax is seen. The cardiac silhouette is enlarged, stable. IMPRESSION: Limited examination. No evidence of dense focal consolidation or overt pulmonary edema. CAT - CT ABD & PELVIS W/O IV CONTRAS 05/21/17 Mild prominence of the spleen. Sigmoid diverticulosis. Enlarged prostate gland. US - US-COMPLETE ABDOMEN 05/22/17 1. Pancreatic body unremarkable. Remainder of pancreas obscured by overlying bowel gas. 2. Liver poorly visualized. 3. Enlarged spleen. 4. Otherwise unremarkable exam. Disposition Summary Disposition Principal Diagnosis: CHF Additional Diagnosis: Bronchitis and COPD exacerbation Discharge Disposition: SNF Discharge Instructions General Discharge Information Code Status: Full Code Patient's Diet: heart healthy diet w/ 2gm restriction Patient's Activity: as tolerated. Follow-Up Instructions/Appts: Please see your PCP within one week of discharge. Please limit salt intake. Avoid pickled and canned food. Medications at Discharge Discharge Medications: Continue taking these medications: Donepezil HCl (Donepezil HCl) 10 MG TABLET 1 Tablet ORAL DAILY Qty = 90 Comments: Last Taken: NOT GIVEN THIS ADMISSION Time: Escitalopram Oxalate (Escitalopram Oxalate) 20 MG TABLET 1 Tablet ORAL DAILY Qty = 90 Comments: Last Taken: NOT GIVEN THIS ADMISSION Time: Losartan (Cozaar) 100 MG TABLET 1 Tablet ORAL DAILY Days = 30 Comments: Last Taken:05/25/17 Time:10A.M Diltiazem HCl (Diltiazem 12HR ER) 60 MG CAP.ER.12H 1 Tablet ORAL TWICE DAILY Comments: Last Taken: 05/25/17 Time: 10:00A.M Insulin Regular (Novolin R Inj) 1,000 UNITS/10 ML MADHAVI 0 Units Inject into fatty tissue SEE INSTRUCTIONS Instructions: BEFORE MEALS BEFORE MEALS Blood Insulin Sugar Units <80 0 81-100 0 101-150 2 151-200 4 201-250 6 251-300 8 301-350 10 351-400 12 >400 Call Doctor Comments: Last Taken: 06/01/16 Time: 8:00 AM Atorvastatin Calcium (Atorvastatin Calcium) 20 MG TABLET 1 Tablet ORAL DAILY Comments: NOT GIVEN THIS ADMISSION Memantine HCl (Namenda) 10 MG TABLET 1 Tablet ORAL DAILY Comments: Last Taken:05/25/17 Time:10A.M Trazodone HCl (Trazodone HCl) 50 MG TABLET 0.5 Tablet ORAL THREE TIMES A DAY NEEDED as needed for Anxiety/Behavioral disturbance Comments: NOT GIVEN THIS ADMISSION Furosemide (Furosemide) 20 MG TABLET 1 Tablet ORAL DAILY Comments: Last Taken:05/25/17 Time:10A.M Start taking the following new medications: Prednisone (Prednisone) 10 MG TABLET 1 Tablet ORAL DAILY Qty = 4 No Refills Instructions: Two Tabs, 20 mg, 0n / 1 tab, 10 mg, 0n /23 5 mg, 1/2 tab, on 05/28-05/29 Comments: Last Taken:05/25/17 Time:10A.M The following medications have been changed: Old: Insulin Detemir (Levemir) 100 UNIT/ML VIAL 30 Units Inject into fatty tissue DAILY Days = 30 New: Insulin Detemir (Levemir) 100 UNIT/ML VIAL 15 Units Inject into fatty tissue TWICE DAILY Qty = 30 Comments: Last Taken:05/25/17 Time: 10:21A,N Copies To: Jun ROACH,[place] Attending MD Review Statement Documenting Attending: Sonja Germain MD Other Findings: 82M PMH HTN, T2DM, HLD, CKD stage 3, SVT s/p PPM, dementia, tachybrady syndrome underwent PPM, no prior h/o CHF admitted with dyspnea, weakness, and cough in the setting of CHF and COPD exacerbations, started on IV Lasix and IV Solumedrol. Treated successfully with improvement in breathing, diuresed well. To be discharged home with outpatient cardiology follow up. 1. Acute on chronic diastolic CHF 2. COPD Exacerbation 3. Hypervolemia
[2017-05-23 14:31] VITALS: BP 128/60
[2017-05-23] MEDS ORDERED: PREDNISONE20 M1 PO (20:23)
--- NOTE | 2017-05-23 21:02 | Patient Discharge Instructions ---
Discharge Instructions General Discharge Information You were seen/treated for: - shortness of breath - bronchitis Watch for these problems: - Chest pain, Palpitations. - Shortness of breath - Difficulty urination, abdominal pain. - Increasing pedal edema. Special Instructions: Please see your PCP within one week of discharge. Please limit salt intake. Avoid pickled and canned food. Acute Coronary Syndrome Inclusion Criteria At DC or during hospital stay patient has or had the following: ACS DIAGNOSIS No Discharge Core Measures Meds if any: Prescribed or Continued at Discharge Meds if any: NOT Prescribed or Continued at Discharge Congestive Heart Failure Inclusion Criteria At DC or during hospital stay patient has or had the following: CHF DIAGNOSIS No Discharge Core Measures Meds if any: Prescribed or Continued at Discharge Meds if any: NOT Prescribed or Continued at Discharge Cerebrovascular accident Inclusion Criteria At DC or during hospital stay patient has or had the following: CVA/TIA Diagnosis No Discharge Core Measures Meds if any: Prescribed or Continued at Discharge Meds if any: NOT Prescribed or Continued at Discharge Venous thromboembolism Inclusion Criteria VTE Diagnosis No VTE Type NONE VTE Confirmed by (Test) NONE Discharge Core Measures - Per Current guidelines, there needs to be overlap - treatment for the first 5 days of Warfarin therapy. - If discharged on Warfarin prior to 5 days of - overlap therapy, the patient will need to be - assessed for post discharge needs including - *Post discharge parental anticoagulation - *Warfarin and/or parental anticoagulation education - *Follow up date to check INR post discharge At least 5 days overlap therapy as Inpatient No Meds if any: Prescribed or Continued at Discharge Note: Overlap Therapy is Warfarin and Anticoagulant Meds if any: NOT Prescribed or Continued at Discharge
[2017-05-23 22:11] VITALS: BP 122/66
--- NOTE | 2017-05-24 07:36 | PN- Housestaff ---
Subjective Follow-up For: CHF Bronchitis Complaints: no complaints Tele-Events Since Last Visit: No telemetry incident Subjective: Patient was visited and examined this morning. Offers no complaints. Spent the night on 2 L of oxygen N/C. Circumflex comfortably not in acute respiratory distress. Reports Scearce productive cough with 1 or 2 teaspoon of white phlegm. Shortness of breath and lower extremity edema has improved. No chest pain, remaining afebrile. Was able to tolerate minimal exercise with the physical therapy. Telemetry: No incidents Fluid balance: -1120 ml Review of Systems Constitutional: Denies: chills, diaphoresis, fever, malaise, weakness, unexplained weight loss. Cardiovascular: Denies: chest pain, edema, orthopena, palpitations, peripheral edema, syncope. Respiratory: Reports: cough, sputum production. Denies: hemoptysis, short of breath, stridor , wheezing. Gastrointestinal: Reports: no symptoms. Musculoskeletal: Denies: back pain, gout, joint pain, joint swelling, muscle pain, muscle stiffness, neck pain. Skin: Denies: cysts, change in skin color, change in hair/nails, dryness, erythema, jaundice, lesions, lymphangitis, lumps, moles, rash. Neurological/Psychological: Reports: see HPI. Objective Last 24 Hrs of Vital Signs/I&O Vital Signs Date Time Temp Pulse Resp B/P B/P Pulse O2 O2 Flow FiO2 Mean Ox Delivery Rate 05/24 0753 97.9 77 20 142/72 93 Nasal Cannula 05/24 0000 Nasal 2.0L Cannula 05/23 2211 98.6 73 20 122/66 97 Nasal 2.0L Cannula 05/23 1458 Nasal 2.0L Cannula 05/23 1431 97.5 76 20 128/60 93 Nasal 2.0L Cannula Intake & Output 05/24 1600 05/24 0800 05/24 0000 Intake Total 110 200 Output Total 325 Balance -215 200 Intake, IV 10 Intake, Oral 100 200 Output, Urine 325 Physical Exam General Appearance: Alert, Oriented X3, Cooperative Skin: No Rashes, No Breakdown, No Significant Lesion HEENT: PERRLA, Mucous Membr. moist/pink Neck: No JVD Lymphatic: Axillary nl, Cervical nl Cardiovascular: Regular Rate, Normal S1, Normal S2 Lungs: Clear to Auscultation, Normal Air Movement Abdomen: Soft, No Tenderness Neurological: Normal Speech, Strength at 5/5 X4 Ext Extremities: No Edema Vascular: Normal Pulses, Pulses Symmetrical Current Medications: Current Medications Sig/Lolis Start time Last Medication Dose Route Stop Time Status Admin Artificial Tears 2 GTT 4 TIMES/DAY 05/22 2200 AC 05/23 OPH 2148 Azithromycin 500 MG DAILY 05/22 1000 AC 05/23 Sodium Chloride 250 ML IV 05/26 1059 0928 Diltiazem HCl 60 MG BID 05/22 1000 AC 05/23 PO 2148 Furosemide 40 MG DAILY 05/24 1000 DC PO Furosemide 20 MG DAILY 05/24 1000 AC PO Furosemide 40 MG DAILY 05/23 1000 DC IV Furosemide 40 MG 7:30 AM, & 4:30 PM 05/22 1630 DC 05/23 IV 0819 Heparin Sodium 5,000 UNIT Q8 05/22 0015 AC 05/24 (Porcine) SC 0611 Insulin Aspart 0 TIDAC 05/23 0800 AC 05/24 SC 0801 Insulin Detemir 12 UNITS BID 05/23 1000 AC 05/23 SC 2148 Insulin Detemir 10 UNITS BID 05/22 1000 DC 05/23 SC 0820 Losartan Potassium 100 MG DAILY 05/22 1000 AC 05/23 PO 0820 Memantine 10 MG DAILY 05/22 1000 AC 05/23 PO 0820 Methylprednisolone 40 MG Q12 05/23 1000 DC 05/23 IV 05/23 2300 2144 Prednisone 40 MG DAILY 05/24 1000 CAN PO Trazodone HCl 25 MG TIDPRN PRN 05/21 2330 AC 05/22 PO 2125 Last 24 Hrs of Lab/Regan Results Last 24 Hrs of Labs/Mics: Laboratory Tests 05/24/17 0645: Anion Gap 9, Estimated GFR 45 L, BUN/Creatinine Ratio 30.0 H, Total Bilirubin 0.3, Direct Bilirubin 0.2, AST 43, ALT 117 H, Alkaline Phosphatase 147 H, Total Protein 5.8 L, Albumin 3.1 L, CBC w Diff Pending, WBC Pending, RBC Pending, Hgb Pending, Hct Pending, MCV Pending, MCH Pending, RDW Pending, Plt Count Pending, MPV Pending, Gran % Pending, Lymphocytes % Pending, Monocytes % Pending, Eosinophils % Pending, Basophils % Pending, Absolute Granulocytes Pending, Absolute Lymphocytes Pending, Absolute Monocytes Pending, Absolute Eosinophils Pending, Absolute Basophils Pending, PUBS MCHC Pending Assessment/Plan Assessment: Mr. Toribio is an 82 yr old gentleman w/ dementia, PMHx of BPV, HTN, HLD, syncope, CKD stage 3a, insulin treated DM, tachy-alejandra syndrome s/p PPM, depression who is being evaluated for worsening dyspnea in the last few weeks likely secondary to diastolic cardiac dysfunction and bronchitis. Pertinent lab findings: WBC 8.8--> 11.5--> 11.1 (likely due to steroids) HB 11.6 Renal function- creatinine 1.4 (05/22/2017)-->1.7 (05/23/2017)--> 1.5 05/24 Liver chemistries- total bilirubin 0.3, ALT 117, alkaline phosphatase 147 Ultrasound abdomen 05/22/171049 1. Pancreatic body unremarkable. Remainder of pancreas obscured by overlying bowel gas. 2. Liver poorly visualized. 3. Enlarged spleen. 4. Otherwise unremarkable exam. Chest x-ray showed no consolidation or pulmonary edema. CT abdomen/pelvis shows splenomegaly, diverticulosis, BPH. Etiology in his case is likely multifactorial. Last echocardiogram does not show any systolic dysfunction, but diastolic dysfunction is likely, although not read in the report. Also, acute bronchitis is possible. 1. Shortness of breath- Would continue to treat both fluid overload, and also pulmonary component. -Switch to PO lasix; 20 mg PO daily; maintain negative fluid balance - Echocardiogram- was done; results needs to be reviewed - Plasterer Spot, Dr. Ramirez advising. - 5 days quick prednisone monique - continue IV azithromycin 2. Diabetes- increased the dose of Levemir to 12 units twice a day; FS BS still uncontrolled. increasing levemir to 14 units BID 3. Abnormal liver chemistries- -trending downward -Ultrasound did not reveal any choledocholithiasis, cholecystitis or CBD dilatation. -Incidental finding of enlarged spleen, clinical significance unknown at this time. Housekeeping- DVT PPx- heparin sc Problem List: 1. Transaminitis 2. Multifactorial gait disorder 3. Bronchitis 4. Hyperglycemia Pain Ratin Pain Location: lower extremity Pain Goal: Remain pain free Pain Plan: as ordered Tomorrow's Labs & Rationales: bep Discharge Plan Discharge Disposition: STR/NH Stable for Discharge? Yes Anticipated Discharge (Day): tomorrow
[2017-05-24 07:53] VITALS: BP 142/72
[2017-05-24 08:10] LABS: ABSOLUTE BASOPHIL COUNT 0 /CUMM (0.0-0.2); ABSOLUTE EOSINOPHIL COUNT 0 /CUMM (0.0-0.7); ABSOLUTE GRANULOCYTE CT 9.9 /CUMM (1.4-6.5); ABSOLUTE MONOCYTE COUNT 0.3 /CUMM (0.10-0.60); BASOPHIL % 0.1 % (0.0-2.0); EOSINOPHIL % 0 % (0-5); GRANULOCYTE % 88.9 % (42.2-75.2); HEMATOCRIT 34.5 % (42-52); MEAN CORPUSCULAR HGB 28.9 PG (27.0-31.0); MEAN CORPUSCULAR HGB CONC 33.7 G/DL (33.0-37.0); MEAN CORPUSCULAR VOLUME 85.7 FL (80.0-94.0); MEAN PLATELET VOLUME 7.6 FL (7.4-10.4); PLATELET COUNT 216 /CUMM (130-400); RBC DISTRIBUTION WIDTH 14.4 % (11.5-14.5); RED BLOOD CELL CT 4.03 /CUMM (4.70-6.10)
[2017-05-24 09:07] LABS: WHITE BLOOD CELL COUNT 11.1 /CUMM (4.8-10.8)
--- NOTE | 2017-05-24 11:54 | PN- Cardiology ---
Subjective Subjective: The patient is sitting comfortably in the bedside chair. His respiratory status is improved. He still does not feel that he is back to his baseline. Objective Vital Signs and I&Os Vital Signs Date Time Temp Pulse Resp B/P B/P Pulse O2 O2 Flow FiO2 Mean Ox Delivery Rate 05/24 0959 77 128/54 05/24 0959 97.9 77 128/54 05/24 0753 97.9 77 20 142/72 93 Nasal Cannula 05/24 0000 Nasal 2.0L Cannula 05/23 2211 98.6 73 20 122/66 97 Nasal 2.0L Cannula 05/23 1458 Nasal 2.0L Cannula 05/23 1431 97.5 76 20 128/60 93 Nasal 2.0L Cannula Intake & Output 05/24 1600 05/24 0800 05/24 0000 05/23 1600 05/23 0800 05/23 0000 Intake Total 110 200 680 100 71 Output Total 325 1400 700 800 Balance -215 200 -720 -600 -729 Intake, IV 10 280 11 Intake, Oral 100 200 400 100 60 Number 0 0 Bowel Movements Output, Urine 325 1400 700 800 Current Medications: Current Medications Sig/Lolis Start time Last Medication Dose Route Stop Time Status Admin Artificial Tears 2 GTT 4 TIMES/DAY 05/22 2200 AC 05/24 OPH 1007 Azithromycin 500 MG DAILY 05/22 1000 AC 05/24 Sodium Chloride 250 ML IV 05/26 1059 1007 Diltiazem HCl 60 MG BID 05/22 1000 AC 05/24 PO 0959 Furosemide 40 MG DAILY 05/24 1000 DC PO Furosemide 20 MG DAILY 05/24 1000 AC 05/24 PO 0958 Heparin Sodium 5,000 UNIT Q8 05/22 0015 AC 05/24 (Porcine) [place] 0611 Insulin Aspart 0 TIDAC 05/23 0800 AC 05/24 SC 0801 Insulin Detemir 14 UNITS BID 05/24 1000 AC 05/24 SC 1004 Insulin Detemir 12 UNITS BID 05/23 1000 DC 05/23 SC 2148 Losartan Potassium 100 MG DAILY 05/22 1000 AC 05/24 PO 0959 Memantine 10 MG DAILY 05/22 1000 AC 05/24 PO 0958 Methylprednisolone 40 MG Q12 05/23 1000 DC 05/23 IV 05/23 2300 2144 Prednisone 5 MG 1000 06/04 1000 AC PO 06/04 1001 Prednisone 10 MG 1000 06/03 1000 AC PO 06/03 1001 Prednisone 20 MG 1000 06/02 1000 AC PO 06/02 1001 Prednisone 30 MG ONCE 06/01 1000 CAN PO 06/05 0959 Prednisone 30 MG 1000 06/01 1000 AC PO 06/01 1001 Prednisone 40 MG DAILY 05/24 1000 CAN PO Trazodone HCl 25 MG TIDPRN PRN 05/21 2330 AC 05/22 PO 2125 Results Last 48 Hrs of Labs/Mics: Laboratory Tests 05/24/17 0645: Anion Gap 9, Estimated GFR 45 L, BUN/Creatinine Ratio 30.0 H, Total Bilirubin 0.3, Direct Bilirubin 0.2, GGT 77 H, AST 43, ALT 117 H, Alkaline Phosphatase 147 H, Total Protein 5.8 L, Albumin 3.1 L, CBC w Diff NO MAN DIFF REQ, RBC 4.03 L, MCV 85.7, MCH 28.9, RDW 14.4, MPV 7.6, Gran % 88.9 H, Lymphocytes % 8.6 L, Monocytes % 2.4, Eosinophils % 0, Basophils % 0.1, Absolute Granulocytes 9.9 H, Absolute Lymphocytes 1.0 L, Absolute Monocytes 0.3, Absolute Eosinophils 0, Absolute Basophils 0, PUBS MCHC 33.7 05/23/17 0610: Anion Gap 10, Estimated GFR 39 L, BUN/Creatinine Ratio 23.5, CBC w Diff NO MAN DIFF REQ, RBC 3.98 L, MCV 86.3, MCH 29.0, RDW 14.6 H, MPV 7.8, Gran % 88.4 H, Lymphocytes % 7.7 L, Monocytes % 3.8, Eosinophils % 0, Basophils % 0.1, Absolute Granulocytes 10.1 H, Absolute Lymphocytes 0.9 L, Absolute Monocytes 0.4, Absolute Eosinophils 0, Absolute Basophils 0, PUBS MCHC 33.7 Assessment/Plan Assessment/Plan Assessment: 1. Hypertension 2. Diabetes mellitus 3. Permanent pacemaker 4. History of SVT 5. Bronchitis 6. Possible acute heart failure exacerbation Plan: * Discontinue IV Lasix. The increase in BUN and creatinine suggest the patient is fully diuresed * Would resume his usual dose of oral Lasix, 20 mg daily * Continue other cardiac medications * I will Brittany tolerated; PT evaluation * Continue to monitor metabolic parameters, intakes, outputs, and daily weights
[2017-05-24 14:14] VITALS: BP 128/56
--- NOTE | 2017-05-24 14:24 | PN- Att Addend ---
Attending MD Review Statement Attending Statement Attending MD Statement: examined this patient, discuss w/resident/PA/PRIMARY SCHOOL TEACHER, agreed w/resident/PA/PRIMARY SCHOOL TEACHER, discussed with family, reviewed EMR data (avail), discussed w/ nursing, discussed w/case mgmt Attending Assessment/Plan: Laboratory Tests 05/24/17 0645: Anion Gap 9, Estimated GFR 45 L, BUN/Creatinine Ratio 30.0 H, Total Bilirubin 0.3, Direct Bilirubin 0.2, GGT 77 H, AST 43, ALT 117 H, Alkaline Phosphatase 147 H, Total Protein 5.8 L, Albumin 3.1 L, CBC w Diff NO MAN DIFF REQ, RBC 4.03 L, MCV 85.7, MCH 28.9, RDW 14.4, MPV 7.6, Gran % 88.9 H, Lymphocytes % 8.6 L, Monocytes % 2.4, Eosinophils % 0, Basophils % 0.1, Absolute Granulocytes 9.9 H, Absolute Lymphocytes 1.0 L, Absolute Monocytes 0.3, Absolute Eosinophils 0, Absolute Basophils 0, PUBS MCHC 33.7 Vital Signs Date Time Temp Pulse Resp B/P B/P Pulse O2 O2 Flow FiO2 Mean Ox Delivery Rate 05/24 1414 97.8 82 20 128/56 94 Nasal 2.0L Cannula 05/24 1158 Nasal 2.0L Cannula 05/24 0959 77 128/54 05/24 0959 97.9 77 128/54 05/24 0930 94 Nasal 2.0L Cannula 05/24 0800 95 Nasal 2.0L Cannula 05/24 0753 97.9 77 20 142/72 93 Nasal Cannula 05/24 0000 Nasal 2.0L Cannula 05/23 2211 98.6 73 20 122/66 97 Nasal 2.0L Cannula 05/23 1458 Nasal 2.0L Cannula 05/23 1431 97.5 76 20 128/60 93 Nasal 2.0L Cannula Pt seen and examined . d/w pt and pts family at bedside the care plan. pt has had very good urine output in the last 2 days . will see how he does on po lasix. counselled pt about low caffeine diet and low salt diet and fluid restricution given his CHF exacerbation. appreciated asset management coordinator input.
[2017-05-24 22:05] VITALS: BP 160/78
[2017-05-25 06:34] VITALS: BP 154/56
--- NOTE | 2017-05-25 07:26 | PN- Housestaff ---
See Addendum Subjective Follow-up For: Hypoxic respiratory failure - CHF -COPD exacerbation Complaints: no complaints Tele-Events Since Last Visit: No telemetry events Subjective: Patient was visits and examined this morning. Sitting comfortably in his bed, just finished his breakfast. Not in respiratory distress using full sentences for communication. On 1lit oxygen nasal cannula. Denies any chest pain, palpitation, shortness of breath, orthopnea. Switched to by mouth Lasix yesterday Fluid balance is -50 for the past 24 hours. Echo showed LVEF > 55% Normal valves Review of Systems Constitutional: Denies: no symptoms, see HPI. EENTM: Reports: see HPI. Cardiovascular: Denies: chest pain, edema, orthopena, palpitations, peripheral edema, syncope. Respiratory: Reports: cough. Denies: hemoptysis, orthopnea, short of breath, sputum production, stridor, wheezing. Gastrointestinal: Reports: no symptoms. Genitourinary: Reports: no symptoms. Musculoskeletal: Reports: no symptoms. Skin: Reports: no symptoms. Objective Last 24 Hrs of Vital Signs/I&O Vital Signs Date Time Temp Pulse Resp B/P B/P Pulse O2 O2 Flow FiO2 Mean Ox Delivery Rate 05/25 0634 98.1 56 20 154/56 92 Nasal Cannula 05/25 0000 Nasal 2.0L Cannula 05/245 97.6 79 20 160/78 93 Nasal 2.0L Cannula 05/24 2122 77 140/70 05/24 1600 98 Nasal 2.0L Cannula 05/24 1414 97.8 82 20 128/56 94 Nasal 2.0L Cannula 05/24 1158 Nasal 2.0L Cannula 05/24 0959 77 128/54 05/24 0959 97.9 77 128/54 05/24 0930 94 Nasal 2.0L Cannula Physical Exam General Appearance: Cooperative, No Acute Distress Skin: No Rashes HEENT: Atraumatic, PERRLA, EOMI, Mucous Membr. moist/pink Neck: No JVD Cardiovascular: Normal S1, Normal S2, No Murmurs Lungs: Clear to Auscultation, Normal Air Movement Abdomen: Soft, No Tenderness, No Hepatospenomegaly Current Medications: Current Medications Sig/Lolis Start time Last Medication Dose Route Stop Time Status Admin Artificial Tears 2 GTT 4 TIMES/DAY 05/22 2200 AC 05/25 OPH 1003 Azithromycin 500 MG DAILY 05/22 1000 AC 05/25 Sodium Chloride 250 ML IV 05/26 1059 1003 Diltiazem HCl 60 MG BID 05/22 1000 AC 05/25 PO 1002 Furosemide 20 MG DAILY 05/24 1000 AC 05/25 PO 1002 Heparin Sodium 5,000 UNIT Q8 05/22 0015 AC 05/25 (Porcine) SC 0555 Insulin Aspart 0 TIDAC 05/23 0800 AC 05/24 SC 1704 Insulin Detemir 14 UNITS BID 05/24 1000 AC 05/25 SC 1012 Losartan Potassium 100 MG DAILY 05/22 1000 AC 05/25 PO 1002 Memantine 10 MG DAILY 05/22 1000 AC 05/25 PO 1002 Prednisone 5 MG 1000 05/28 1000 AC PO 05/28 1001 Prednisone 10 MG 1000 05/27 1000 AC PO 05/27 1001 Prednisone 20 MG 1000 05/26 1000 AC PO 05/26 1001 Prednisone 30 MG 1000 05/25 1000 DC 05/25 PO 05/25 1001 1001 Trazodone HCl 25 MG TIDPRN PRN 05/21 2330 AC 05/22 PO 2125 Last 24 Hrs of Lab/Regan Results Last 24 Hrs of Labs/Mics: Laboratory Tests 05/25/17 0628: Anion Gap 8, Estimated GFR 36 L, BUN/Creatinine Ratio 24.4, Total Bilirubin 0.5 , Direct Bilirubin 0.3, AST 42, ALT 100 H, Alkaline Phosphatase 122, Total Protein 5.8 L, Albumin 3.0 L Assessment/Plan Assessment: Mr. Toribio is an 82 yr old gentleman w/ dementia, PMHx of BPV, HTN, HLD, syncope, CKD stage 3a, insulin treated DM, tachy-alejandra syndrome s/p PPM, depression who is being evaluated for worsening dyspnea in the last few weeks likely secondary to diastolic cardiac dysfunction and bronchitis. Pertinent lab findings: Renal function- creatinine 1.4 (05/22/2017)-->1.7 (05/23/2017)--> 1.5 05/24--> Cr 1.8 Liver chemistries- total bilirubin 0.3, ALT 117, alkaline phosphatase 147 Ultrasound abdomen 05/22/17 / 1050 1. Pancreatic body unremarkable. Remainder of pancreas obscured by overlying bowel gas. 2. Liver poorly visualized. 3. Enlarged spleen. 4. Otherwise unremarkable exam. Chest x-ray showed no consolidation or pulmonary edema. CT abdomen/pelvis shows splenomegaly, diverticulosis, BPH. Etiology in his case is likely multifactorial. Last echocardiogram does not show any systolic dysfunction, but diastolic dysfunction is likely, although not read in the report. Also, acute bronchitis is possible. 1. Shortness of breath -DC on PO lasix; 20 mg PO daily; maintain negative fluid balance - Echocardiogram- Normal LVEF 55% - Manager Contact, Dr. Ramirez advising. - 5 days quick prednisone monique - last dose of azithromycin today 2. Diabetes- Dc on 15 U BID 3. Abnormal liver chemistries- -trending downward -Ultrasound did not reveal any choledocholithiasis, cholecystitis or CBD dilatation. -Incidental finding of enlarged spleen, clinical significance unknown at this time. Housekeeping- DVT PPx- heparin sc Problem List: 1. Syncope 2. Essential hypertension 3. Mixed hyperlipidemia 4. Type 2 diabetes mellitus 5. RBBB 6. Head injury 7. Scalp laceration 8. Skin avulsion 9. Bradycardia 10. Pre-syncope 11. LENNOX (acute kidney injury) 12. Pacemaker 13. Urinary tract infection 14. Renal insufficiency 15. Hyperglycemia 16. Bronchitis 17. Multifactorial gait disorder 18. Transaminitis 19. Dyspnea Pain Ratin Pain Location: per pain pathways Pain Goal: Remain pain free Pain Plan: per painpathways Tomorrow's Labs & Rationales: NA Discharge Plan Discharge Disposition: STR/NH Stable for Discharge? Yes Anticipated Discharge (Day): today If Discharged Today/In 24 Hrs: W-10/discharge paper done
[2017-05-25] MEDS ORDERED: PREDNISONE10 M2 PO (07:39)
[2017-05-25] MEDS ORDERED: LEVEMIR100 UNIT/1 SC (07:41)
[2017-05-25 12:52] VITALS: BP 140/66
--- NOTE | 2017-05-25 13:15 | PN- Cardiology ---
Objective Vital Signs and I&Os Vital Signs Date Time Temp Pulse Resp B/P B/P Pulse O2 O2 Flow FiO2 Mean Ox Delivery Rate 05/25 1252 98.1 56 20 140/66 05/25 1002 140/66 05/25 1002 140/66 05/25 0800 95 Nasal 1.0L Cannula 05/25 0634 98.1 56 20 154/56 92 Nasal Cannula 05/25 0000 Nasal 2.0L Cannula 05/24 2205 97.6 79 20 160/78 93 Nasal 2.0L Cannula 05/24 2122 77 140/70 05/24 1600 98 Nasal 2.0L Cannula 05/24 1414 97.8 82 20 128/56 94 Nasal 2.0L Cannula Intake & Output 05/25 1600 05/25 0800 05/25 0000 05/24 1600 05/24 0800 05/24 0000 Intake Total 410 750 110 200 Output Total 450 325 Balance -40 750 -215 200 Intake, IV 10 270 10 Intake, Oral 400 480 100 200 Output, Urine 450 325 Current Medications: Current Medications Sig/Lolis Start time Last Medication Dose Route Stop Time Status Admin Artificial Tears 2 GTT 4 TIMES/DAY 05/22 2200 AC 05/25 OPH 1003 Azithromycin 500 MG DAILY 05/22 1000 AC 05/25 Sodium Chloride 250 ML IV 05/26 1059 1003 Diltiazem HCl 60 MG BID 05/22 1000 AC 05/25 PO 1002 Furosemide 20 MG DAILY 05/24 1000 AC 05/25 PO 1002 Heparin Sodium 5,000 UNIT Q8 05/22 0015 AC 05/25 (Porcine) [place] 0555 Insulin Aspart 0 TIDAC 05/23 0800 AC 05/25 SC 1150 Insulin Detemir 14 UNITS BID 05/24 1000 AC 05/25 MO 1012 Losartan Potassium 100 MG DAILY 05/22 1000 AC 05/25 PO 1002 Memantine 10 MG DAILY 05/22 1000 AC 05/25 PO 1002 Prednisone 5 MG 1000 05/28 1000 AC PO 05/28 1001 Prednisone 10 MG 1000 05/27 1000 AC PO 05/27 1001 Prednisone 20 MG 1000 05/26 1000 AC PO 05/26 1001 Prednisone 30 MG 1000 05/25 1000 DC 05/25 PO 05/25 1001 1001 Trazodone HCl 25 MG TIDPRN PRN 05/21 2330 AC 05/22 PO 2125 Results Last 48 Hrs of Labs/Mics: Laboratory Tests 05/25/17 0628: Anion Gap 8, Estimated GFR 36 L, BUN/Creatinine Ratio 24.4, Total Bilirubin 0.5 , Direct Bilirubin 0.3, AST 42, ALT 100 H, Alkaline Phosphatase 122, Total Protein 5.8 L, Albumin 3.0 L 05/24/17 0645: Anion Gap 9, Estimated GFR 45 L, BUN/Creatinine Ratio 30.0 H, Total Bilirubin 0.3, Direct Bilirubin 0.2, GGT 77 H, AST 43, ALT 117 H, Alkaline Phosphatase 147 H, Total Protein 5.8 L, Albumin 3.1 L, CBC w Diff NO MAN DIFF REQ, RBC 4.03 L, MCV 85.7, MCH 28.9, RDW 14.4, MPV 7.6, Gran % 88.9 H, Lymphocytes % 8.6 L, Monocytes % 2.4, Eosinophils % 0, Basophils % 0.1, Absolute Granulocytes 9.9 H, Absolute Lymphocytes 1.0 L, Absolute Monocytes 0.3, Absolute Eosinophils 0, Absolute Basophils 0, PUBS MCHC 33.7 Assessment/Plan Assessment/Plan Assessment: 1. Hypertension 2. Diabetes mellitus 3. Permanent pacemaker 4. History of SVT 5. Bronchitis 6. Possible acute heart failure exacerbation Plan: * Continue as presently * Continue oral Lasix * Continue other cardiac medications * Out of bed as tolerated; PT evaluation * Continue to monitor metabolic parameters, intakes, outputs, and daily weights
--- NOTE | 2017-06-02 13:22 | ECHOCARDIOGRAM REPORT ---
AKHIL BENTLEY Age: 82 : 1935 Gender: M Exam Date: 05/22/2017 10:14 Exam Location: 1 [address] Ht (in): 74 Wt (lb): 256 BSA: 2.49 BP: 157 / 75 Ordering Physician: Mary Day, Referring Physician: Mary Day, Technologist: Matthew Rodriguez DENISE Room Number: 178-1 Indications: Chest Pain Rhythm: Other Technical Quality: Fair, Technically difficult study FINDINGS Left Ventricle Normal size left ventricle. No obvious regional wall motion abnormalities. Left ventricular wall thickness increased. Borderline normal left ventricular ejection fraction estimated at 50-55%. Right Ventricle Normal right ventricular size and function. Right Atrium Normal right atrial size. Left Atrium Mild left atrial dilatation. Mitral Valve Mitral valve thickened. Trace to mild mitral regurgitation. Aortic Valve Trileaflet aortic valve. Focal thickening of the aortic valve cusps. No aortic stenosis. Trace to mild aortic regurgitation. Tricuspid Valve Tricuspid valve not well visualized, grossly normal. Trace tricuspid regurgitation. Pulmonic Valve Pulmonic valve not well visualized, grossly normal. Trace pulmonic regurgitation. Pericardium No pericardial effusion. Great Vessels Normal size aortic root and proximal ascending aorta. CONCLUSIONS 1. This was a technically difficult examination. 2. Minimal to mild aortic sclerosis is present with minimal to mild aortic insufficiency. 3. Mild mitral leaflet thickening is present with minimal to mild mitral insufficiency and mild left atrial enlargement. 4. There is no pericardial fluid detected. 5. THe left ventricular chamber size and systolic function appear normal. Mild concentric hypertrophy is present. 6. Minimal tricuspid and pulmonic insufficiency are present. The RV systolic pressure could not be accurately assessed. 7. Lipomatous atrial septal hypertrophy is present. 8. Pacemaker wires are present in the right heart chambers. This study was amended only to correct patient identifiers Apurva Brownlee M.D. (Electronically Signed) Final Date: 22 May 2017 19:59 Amended: 31 May 2017 22:11 MEASUREMENTS (Male / Female) Normal Values 2D ECHO LV Diastolic Diameter PLAX 5.1 cm 4.2 - 5.9 / 3.9 - 5.3 cm LV Systolic Diameter PLAX 3.2 cm 2.1 - 4.0 cm LV Fractional Shortening PLAX 37.3 % 25 - 46 % LV Ejection Fraction 2D Teich 66.9 % IVS Diastolic Thickness 1.3 cm LVPW Diastolic Thickness 1.3 cm LV Relative Wall Thickness 0.5 RV Internal Dim ED PLAX 2.9 cm 1.9 - 3.8 cm LVOT Diameter 2.3 cm Aortic Root Diameter 3.6 cm LA Systolic Diameter LX 3.4 cm 3.0 - 4.0 / 2.7 - 3.8 cm LA Volume 47.0 cm 18 - 58 / 22 - 52 cm Ascending Aorta Diameter 3.6 cm DOPPLER AV Peak Velocity 111.0 cm/s AV Peak Gradient 4.9 mmHg AV Mean Velocity 78.7 cm/s AV Mean Gradient 3.0 mmHg AV Velocity Time Integral 23.1 cm LVOT Peak Velocity 70.7 cm/s LVOT Peak Gradient 2.0 mmHg LVOT Mean Velocity 44.3 cm/s LVOT Mean Gradient 1.0 mmHg LVOT Velocity Time Integral 19.3 cm LVOT Stroke Volume 80.2 cm AV Area Cont Eq vti 3.5 cm AV Area Cont Eq pk 2.6 cm Mitral E Point Velocity 84.4 cm/s Mitral A Point Velocity 109.0 cm/s Mitral E to A Ratio 0.8 MV Deceleration Time 250.0 ms PV Peak Velocity 110.0 cm/s PV Peak Gradient 4.8 mmHg PV Mean Velocity 77.4 cm/s PV Mean Gradient 3.0 mmHg PV Velocity Time Integral 20.3 cm LV E' Lateral Velocity 4.7 cm/s Mitral E to LV E' Lateral Ratio 17.8 LV E' Septal Velocity 5.4 cm/s Mitral E to LV E' Septal Ratio 15.7
== END 2017-05-25 13:30 | DRG 291 ==
LOC: ERH 16:40 → ERHI 20:13 → CANRESERV 22:13 → EDBEDREQ 22:28 → ERHI 05-22 08:45 → 1NO 05-22 10:24 → ERHI 05-22 10:24 → 1NO 05-22 10:24 → ENRESERV 05-22 14:13 → ENTRNSPT 05-22 15:27 → 1NO 05-22 16:02 → CMPTRNSPT 05-22 16:02 → 1NO 05-24 08:36 → ENPENDDIS 05-25 12:07 → 1NO 05-25 13:30
PROVIDERS: Internal Medicine; Internal Medicine Endocrinology, Diabetes & Metabolism; Physician Assistant Medical
DX: I13.0 Hypertensive heart and chronic kidney disease with heart failure and stage 1 through stage 4 chronic kidney disease, or unspecified chronic kidney disease (principal); I50.33 Acute on chronic diastolic (congestive) heart failure; E11.22 Type 2 diabetes mellitus with diabetic chronic kidney disease; E11.65 Type 2 diabetes mellitus with hyperglycemia; J44.0 Chronic obstructive pulmonary disease with (acute) lower respiratory infection; I49.5 Sick sinus syndrome; J44.1 Chronic obstructive pulmonary disease with (acute) exacerbation; N18.3 Chronic kidney disease, stage 3 (moderate); Z79.4 Long term (current) use of insulin; R26.9 Unspecified abnormalities of gait and mobility; R74.0 Nonspecific elevation of levels of transaminase and lactic acid dehydrogenase [LDH]; J20.9 Acute bronchitis, unspecified; Z95.0 Presence of cardiac pacemaker; F03.90 Unspecified dementia, unspecified severity, without behavioral disturbance, psychotic disturbance, mood disturbance, and anxiety; E78.5 Hyperlipidemia, unspecified; H81.10 Benign paroxysmal vertigo, unspecified ear; M19.90 Unspecified osteoarthritis, unspecified site; Z87.442 Personal history of urinary calculi; F41.9 Anxiety disorder, unspecified; F32.9 Major depressive disorder, single episode, unspecified; D64.9 Anemia, unspecified; I45.10 Unspecified right bundle-branch block
CPT/HCPCS: 1NSP; 36415; 74176; 81003; 82436; 87040; 87070; 87071; 87086; 87804; 87804-59; 93005; 93010; 93306; 96374; 97110-GO; 97116-GO; 97161-GP; 97530-GO; G0480; J0456; J1644; J1940; J2920; J2930; J3490; J7040; J7512